=== PATIENT | male | born 1965 | race Caucasian/White ===

== ENCOUNTER 2016-08-13 18:54 | Inpatient (IN) ==
[2016-08-13] MEDS ORDERED: SODIUM CHLORIDE 0.9% 2,000 ML IV STA (19:43)
[2016-08-13] MEDS ORDERED: ONDANSETRON 4 MG/2 ML VIAL IV STA (19:43)
[2016-08-13] MEDS ORDERED: ONDANSETRON 4 MG/2 ML VIAL ONE (19:54)
[2016-08-13 19:58] LABS: Basophils # 0.1 10*3/uL (0.0-0.2); Basophils % 0.5 % (0.0-0.8); Hematocrit 45.7 VOL% (42.0-52.0); Hemoglobin 16.1 GM/DL (14.0-18.0); Immature Granulocytes Absolute 0.59 #; Lymphocytes # 0.7 10*3/uL (1.4-4.0); Lymphocytes % 3.7 % (21.2-54.2); Mean Corpuscular HGB Conc 35.2 GM/DL (32-36); Mean Corpuscular Hemoglobin 30 PG (27-34); Mean Corpuscular Volume 86.2 FL (87-102); Mean Platelet Volume 11.2 FL (9.6-12.0); Monocytes # 0.4 10*3/uL (0.11-0.8); Monocytes % 2.1 % (1.7-12.7); Neutrophils # 18.1 10*3/uL (1.4-7.4); Neutrophils % 90.7 % (38.7-73.9); Platelet Count 128 T/CUMM (130-400); Red Cell Distribution Width 13.1 % (9.3-17.3)
--- NOTE | 2016-08-13 20:11 | EKG Report ---
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
[2016-08-13] MEDS ORDERED: CEFTAROLINE 600 MG in SODIUM CHLORIDE 0.9% 100 ML IV STA (20:14)
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
[2016-08-13 20:17] LABS: Lactic Acid 6.4 MMOL/L (0.4-2.0)
[2016-08-13 20:18] LABS: Alanine Aminotransferase 32 U/L (16-61); Albumin 2.8 G/DL (3.4-5.0); Alkaline Phosphatase 63 U/L (45-117); Amylase 35 U/L (25-115); Aspartate Amino Transferase 36 U/L (0-37); Band Neutrophils 13 % (0-10); Blood Urea Nitrogen 36 MG/DL (7-18); Glucose 324 MG/DL (74-106); Lymphocytes 5 % (20-55); Magnesium 1.3 MG/DL (1.8-2.4); Osmolality,Calculated 290.1 MOS/KG (273-304); Potassium 3.1 MMOL/L (3.5-5.1); Segmented Neutrophils 78 % (50-85); Sodium 135 MMOL/L (136-145); Total Cells Counted 100; Total Protein 6.8 G/DL (6.4-8.3); Troponin I Only < 0.015 NG/ML (0.00-0.045)
[2016-08-13 20:19] LABS: Platelet Estimate Decreased; Poikilocytosis Slight; Tear Drop Cells Slight
[2016-08-13] MEDS ORDERED: SODIUM CHLORIDE 0.9% 100 ML IV ONE (20:41)
[2016-08-13] MEDS ORDERED: CEFTAROLINE 600 MG VIAL IV ONE (20:41)
[2016-08-13] MEDS ORDERED: KETOROLAC 30 MG/1 ML VIAL IV STA (20:45)
[2016-08-13] MEDS ORDERED: KETOROLAC 30 MG/1 ML VIAL ONE (20:52)
[2016-08-13] MEDS ORDERED: GENTAMICIN INJ 180 MG in SODIUM CHLORIDE 0.9% 100 ML IV STA (20:59)
--- NOTE | 2016-08-13 21:28 | CT Report ---
CT abdomen pelvis wo con Indication: Abdominal pain/pelvic pain Comparison: November 13, 2015 CT abdomen and pelvis Technique: CT of the abdomen and pelvis was performed without administration of intravenous contrast. Coronal and sagittal reformatted images were additionally created and submitted for review. The total DLP is 1019 mGy*cm. Dose reduction: This CT exam was performed using one or more of the following dose reduction techniques: Automated exposure control, automated adjustment of the mA and/or KV according to patient size, or use of iterative reconstruction technique. Findings: Very minimal posterior basilar dependent atelectatic changes are noted bilaterally. Lung bases are otherwise clear. There is no pleural or pericardial effusion. ABDOMEN: Liver/Gallbladder: Unenhanced liver appears grossly unremarkable. There is mild diffuse hypodensity which is suspicious for fatty infiltration of the hepatic parenchyma. Gallbladder is nondilated. There is no biliary ductal dilatation. Spleen: No acute findings. Pancreas: No acute findings. Adrenals: Within normal limits in appearance. Kidneys: There is marked stranding about the right kidney with a 0.9 cm obstructing stone within the proximal right ureter. The amount of stranding about the right kidney is concerning for collecting system disruption/urine leak. Contrast examination with delayed imaging could be obtained to assess this. There is an additional 4 mm stone within the distal right ureter, which is also likely partially obstructing. Additional 2-3 millimeter nonobstructing stones are noted within the right renal collecting system. No bladder stones are identified. There is a 9 mm nonobstructing stone within the lower pole of the left kidney. Bowel/mesentery: Small bowel is nondilated. There is no free air within the abdomen. No focal fluid collections are identified. Colon is also nondilated. The appendix appears unremarkable. There is no mesenteric adenopathy Retroperitoneum: No evidence of aortic aneurysm or significant retroperitoneal adenopathy. PELVIS: Bladder is unremarkable. Prostate is within normal limits. There is no free fluid within the dependent pelvis. There is no pelvic adenopathy. Again noted is the partially obstructing 4 mm stone within the distal right ureter (axial image 161). BONES: No acute or suspicious osseous abnormalities are identified. Partially healed left 10th rib fracture is noted and appears similar to prior. IMPRESSION: 1. 2 separate obstructing right ureteral stones, the distal one measures 4 mm and the proximal measures 9 mm. There is mild right hydronephrosis/hydroureter and marked stranding about the right kidney, concerning for disruption of the collecting system/urine leak. This could be evaluated with contrasted study and delayed imaging if clinically indicated. 2. Additional bilateral nonobstructing renal stones are noted. 3. Findings suggestive of fatty infiltration of the hepatic parenchyma. 08/13/2016 9:17 PM PROCEDURE INTERPRETED AT [facility] DEPARTMENT OF RADIOLOGY Final Report Signed by: Fernandez Mercedes
--- NOTE | 2016-08-13 21:38 | XRay Report ---
XR KUB Clinical Information: Midline abdominal pain, flank pain Comparison: 09/01/2009 Findings: Bowel gas pattern is nonspecific and within normal limits. No abnormally dilated small bowel loops are identified to suggest obstruction. There is no free air identified. Scattered fecal material is noted throughout colon, which is otherwise nondilated. No abnormal focal soft tissue masses are identified in the abdomen or pelvis. Multiple bilateral punctate calcific densities are noted within the renal shadows, likely representing stones. There is also a punctate calcific density within the right hemipelvis likely representing the distal ureteral stone seen on CT imaging. Lung bases appear predominantly clear. There is no acute osseous abnormality. No suspicious osseous lesions are identified. Impression: No evidence of small bowel dilatation/obstruction. Multiple bilateral renal stones. Please see CT abdomen pelvis report dated same day for additional findings/details. PROCEDURE INTERPRETED AT [facility] DEPARTMENT OF RADIOLOGY Final Report Signed by: Fernandez Mercedes
[2016-08-13] MEDS ORDERED: VANCOMYCIN INJ 1,000 MG in SODIUM CHLORIDE 0.9% 250 ML IV STA (22:02)
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
[2016-08-13] MEDS ORDERED: SODIUM CHLORIDE 0.9% 1,000 ML IV STA (22:35)
[2016-08-13] MEDS ORDERED: NOREPINEPHRINE 4 MG/4 ML VIAL IV ONE (22:39)
[2016-08-13] MEDS ORDERED: VANCOMYCIN 1,000 MG VIAL ONE ×2 (22:43→22:55)
[2016-08-13] MEDS: NOREPINEPHRINE 8 MG in SODIUM CHLORIDE 0.9% 242 ML IV SCH (23:00)
--- NOTE | 2016-08-13 23:02 | XRay Report ---
Exam: XR chest 1V portable Indication: Central venous catheter placement Comparison study: 03/02/2016 Findings: Right internal jugular venous catheter noted in position with the tip terminating at cavoatrial junction. The lung volumes are noted with perihilar and basilar interstitial opacities likely representing atelectasis. There is no focal consolidation. There is no pneumothorax or pleural effusion identified. Impression: Right internal jugular venous catheter placement. Basilar atelectasis is suspected. PROCEDURE INTERPRETED AT [facility] DEPARTMENT OF RADIOLOGY Final Report Signed by: Fernandez Mercedes
[2016-08-13 23:40] LABS: Apearance,Urine CLOUDY (Clear); Bacteria,Urine Many /HPF (Few); Bilirubin,Urine Negative (Negative); Blood, Urine Moderate mg/dL (Negative); Glucose,Urine (UA) >=500 mg/dL (Negative); Ketones,Urine 5 mg/dL (Negative); Mucus,Urine Occasional /LPF (Occasional); Nitrite,Urine Negative (Negative); Protein,Urine 100 MG/DL; RBC,Urine 32 /HPF (0-4); Squamous Epithelial Cell,Urine Occasional /HPF (0-10); Urine Color Amber (Yellow); Urine Specific Gravity 1.014 (1.001-1.035); Urine Urobilinogen < 2.0 EU/DL (0.2-1.0); WBC,Urine 277 /HPF (0-6)
[2016-08-14] MEDS ORDERED: VANCOMYCIN INJ 1,000 MG in SODIUM CHLORIDE 0.9% 250 ML IV ONE (01:00)
[2016-08-14] MEDS: PIPERACILLIN/TAZOBACTAM 3,375 MG in SODIUM CHLORIDE 0.9% 100 ML IV SCH ×3 (01:46→22:36)
[2016-08-14] MEDS: HYDROmorphone 2 MG/1 ML VIAL IV PRN ×2 (05:48→21:10)
--- NOTE | 2016-08-14 07:33 | Urology Consultation ---
History of Present Illness - Data of Consult Consult date: 08/14/16 - Consult Narrative History of present illness: Mr. Silva is a 50 year old male This 50-year-old white male was seen in emergency room the day of admission with 2-3 day history of right flank pain. He has a past history of stones and is passed multiple stones previously. In the emergency room he was noted to have pyuria on urinalysis and an elevated white count and a CT scan shows a 9 mm proximal right ureteral stone and a 4 mm distal right ureteral strong stone with mild hydronephrosis. He has additional renal stones. The patient was also noted to be hypotensive and was admitted to ICU for antibiotic therapy and blood pressure monitoring. The patient will need decompression of the collecting system on the right side until the infection is controlled I will recommend a percutaneous nephrostomy. I discussed the case with Dr. Griffin who will do this today CC: Jose Vera MD - Home Medications and Allergies Allergies/Adverse Reactions: Allergies Allergy/AdvReac Type Severity Reaction Status Date / Time No Known Allergies Allergy Verified 03/02/16 03:18 Exam - Constitutional Vitals: Period Temp Pulse Resp BP Sys/Gill Pulse Ox Last 24 Hr 100.3 F-100.6 F 111-120 16-27 92-125/47-74 93-96 Results - Labs CBC & BMP: 08/13/16 19:36 08/13/16 19:36
--- NOTE | 2016-08-14 08:15 | IR History and Physical Update ---
IR Pre-Procedure - History and Physical H&P was reviewed, the patient examined and there: are no changes in the patients condition since last H&P was completed. Reason for procedure:: 50-year-old male with history of kidney stones. The dominant right kidney stone has now migrated into the proximal right ureter with obstruction of the right urinary collecting system. Patient presented to the ER yesterday afternoon septic, hypotensive with decreased responsiveness. He is now in the ICU and in need of emergent percutaneous nephrostomy. - Dictation Physical: refer to H&P completed by admitting physician - Physical Exam Vital Signs: Last Vital Signs Temp 100.3 F H 08/14/16 04:00 Pulse 111 H 08/14/16 06:00 Resp 16 08/14/16 06:00 BP 95/47 08/14/16 06:45 Pulse Ox 94 L 08/14/16 06:00 - Sedation IR anesthesia plan for sedation: anesthesia consulted ASA Class: IV (Emergency) - Risks Risks: Procedures explained. Risks discussed include, but not limited to, the following:[Worsening sepsis, intubation, ] All questions answered. The following alternatives were discussed:[None] Risks and benefits discussed with: spouse Consent obtained from: spouse Assessment and Plan - Time spent with patient Time spent with patient: Less than 30 minutes (1) Pyonephrosis Status: Acute Assessment and plan: Assessment: Obstructing proximal right ureter calculus with resultant pyelonephrosis of the right kidney. Emergent percutaneous nephrostomy necessary. Plan: Emergent right percutaneous nephrostomy. Risks including discussed with patient's on telephone, witnessed by RN. Anesthesia consulted for CV monitoring and airway management. Current Visit: Yes
[2016-08-14] MEDS ORDERED: PHENYLEPHRINE 1 MG/10 ML SYRINGE IV ONE (08:30)
[2016-08-14] MEDS ORDERED: DEXAMETHASONE 4 MG/1 ML VIAL ONE (08:30)
[2016-08-14] MEDS ORDERED: DEXAMETHASONE 10 MG/1 ML VIAL ONE (08:30)
[2016-08-14] MEDS ORDERED: NEOSTIGMINE 10 MG/10 ML VIAL ONE (08:30)
[2016-08-14] MEDS ORDERED: GLYCOPYRROLATE 0.4 MG/2 ML VIAL ONE (08:30)
[2016-08-14] MEDS ORDERED: LIDOCAINE 2% 5 ML VIAL ONE (08:30)
[2016-08-14] MEDS ORDERED: SUCCINYLCHOLINE 200 MG/10 ML VIAL ONE (08:30)
[2016-08-14] MEDS ORDERED: ETOMIDATE 20 MG/10 ML VIAL IV ONE (08:30)
[2016-08-14] MEDS ORDERED: KETOROLAC 30 MG/1 ML VIAL ONE (08:30)
[2016-08-14] MEDS ORDERED: ONDANSETRON 4 MG/2 ML VIAL ONE ×2 (08:30→15:02)
[2016-08-14] MEDS ORDERED: PROPOFOL 500 MG/50 ML BOTTLE IV ONE (08:30)
[2016-08-14] MEDS ORDERED: CISATRACURIUM 10 MG/5 ML VIAL IV ONE (08:30)
--- NOTE | 2016-08-14 09:19 | Post Interventional Procedure ---
Pre-op diagnosis: Right pyonephrosis, urosepsis Post-op diagnosis: same Procedure: Right percutaneous nephrostomy Contrast: Omni 350, 2 cc Flouroscopy: 1.1 min Radiologist: Lincoln Griffin Anesthesia: GETA Specimens: other (5 cc pus for Cx and GS) Estimated blood loss: none Complications: none Condition: critical Description/Findings: Uncomplicated placement of 10 Fr pigtail drain catheter right kidney. Ross pus under pressure when initially accessed. Assessment and Plan - Time spent with patient Time spent with patient: Less than 30 minutes (1) Pyonephrosis Status: Acute Assessment and plan: Assessment: Obstructing proximal right ureter calculus with resultant pyelonephrosis of the right kidney. Emergent percutaneous nephrostomy necessary. Plan: Emergent right percutaneous nephrostomy. Risks including discussed with patient's on telephone, witnessed by RN. Anesthesia consulted for CV monitoring and airway management. 09:18 @ 08/14/16: [place] bag drainage of right perc neph. No flushing catheter until urine clears to minimize risk of bacteremia. Current Visit: Yes
[2016-08-14] MEDS ORDERED: SUGAMMADEX 200 MG/2 ML VIAL IV ONE ×3 (09:30→09:40)
--- NOTE | 2016-08-14 10:05 | Anesthesia Post-Op ---
Anesthesia Post OP - Post Ansesthetic Evaluation Patient seen in post op: Yes Resp: within normal limits CV: within normal limits Mental: within normal limits Temp: within normal limits [id number]: within normal limits Nausea and Vomiting: within normal limits Pain: within normal limits
[2016-08-14] MEDS ORDERED: SEVOFLURANE 1 UNIT/15 MINUTE INH ONE (10:07)
[2016-08-14] MEDS ORDERED: MIDAZOLAM 2 MG/2 ML VIAL ONE (10:08)
[2016-08-14] MEDS ORDERED: fentaNYL 100 MCG/2 ML VIAL ONE (10:08)
[2016-08-14] MEDS ORDERED: SODIUM CHLORIDE 0.9% 750 ML IV ONE (10:08)
[2016-08-14] MEDS ORDERED: DEXTROSE 50% 25 GM/50 ML VIAL IV PRN (10:47)
[2016-08-14] MEDS ORDERED: GLUCAGON 1 MG VIAL IM PRN (10:47)
[2016-08-14] MEDS ORDERED: LEVOFLOXACIN INJ 750 MG in PREMIX 1 EACH IV ONE (11:00)
--- NOTE | 2016-08-14 11:02 | Interventional Radiology Rpt ---
IR nephrostomy perc RT, Consult to Interventional Rad Indication: Pyonephrosis right kidney. Urosepsis. Hypertension, on pressors. Obstructing proximal right ureter calculus. History of kidney stones. PERCUTANEOUS NEPHROSTOMY RIGHT KIDNEY Description: A formal timeout was performed. General endotracheal anesthesia was induced. The patient was positioned prone on the fluoroscopy table. Maximum sterile barrier technique was used. The right back was prepped and draped in a sterile fashion. Under sonographic guidance, an AccuStick needle was advanced into the minimally dilated urinary collecting system. A captured sonographic image documents the needle position. The needle was slowly withdrawn while aspirating. Latoya pus returned in the hub, a very gentle antegrade nephroureterogram of 2 cc contrast was performed to confirm positioning of the tip of the needle. The needle was exchanged over a wire for an AccuStick sheath, which was then exchanged for a 10 Brazilian pigtail drainage catheter. Pus exuded from the catheter under pressure at this point. And aspirate of 5 cc latoya pus was obtained and sent for Gram stain and culture. Pigtail position was confirmed in the renal pelvis with residual contrast from the earlier nephrostogram and no additional injection was performed to limit risk of propagating bacteremia. The catheter was anchored in place with a StatLock device and connected to a drainage bag. The patient tolerated the procedure well. Contrast: Omnipaque 350, 2 cc. Fluoroscopy time: 1.1 minute. Medications: General endotracheal anesthesia. Impression: Right percutaneous nephrostomy. PROCEDURE INTERPRETED AT [facility] DEPARTMENT OF RADIOLOGY Final Report Signed by: Lincoln Griffin M.D.
[2016-08-14] MEDS: SODIUM CHLORIDE 0.9% 1,000 ML IV SCH ×2 (11:15→18:52)
[2016-08-14] MEDS ORDERED: MAGNESIUM SULF RIDER 2 GM in PREMIX 1 EACH IV ONE (11:16)
--- NOTE | 2016-08-14 11:20 | Hospitalist Progress Note ---
Assessment and Plan (1) Pyonephrosis Status: Acute Assessment and plan: The patient is moved the hospital with sepsis syndrome. He is receiving IV fluid resuscitation and IV antibiotics with Zosyn and Levaquin at renal failure doses. The patient has acute renal failure due to obstruction as well as sepsis. The patient has had nephrostomy tube placed. Dr. Carr is managing the ureteral stone disease. The patient will have repletion of magnesium and potassium. We will recheck creatinine in the morning. Current Visit: Yes (2) Right ureteral calculus Status: Acute Current Visit: Yes (3) Severe sepsis Status: Acute Current Visit: Yes Hospitalist: Subjective Interval history: The patient was admitted to the hospital yesterday evening with obstructing stones on the right with hydronephrosis and gram-negative sepsis. The patient continues on fluid resuscitation and IV antibiotics. The patient had a consultation with Dr. Carr this morning and Dr. Griffin was able to place percutaneous nephrostomy tube. I discussed the patient's condition with his at the bedside. The patient's hemodynamics are stable at present and he is responding appropriately to therapy. Exam - Constitutional Vitals: Period Temp Pulse Resp BP Sys/Gill Pulse Ox Last 24 Hr 97.4 F-100.6 F 111-136 16-28 92-125/47-91 93-97 Exam: Constitutional System: Mild distress. No tremulousness. The patient is sedated following the nephrostomy. The patient has mild diaphoresis Head: Normocephalic, atraumatic. Ears, Nose and Throat System: No evidence of Otitis or Mastoiditis. No epistaxis or discharge Eyes System: Pupils equal, round, and reactive. Extraocular muscles intact. Neck: Supple, without adenopathy, No jugular venous distention. No thyromegaly , neck mass, or prior surgery apparent. Respiratory System: Chest clear to auscultation. Cardiovascular System: Heart with regular rate and rhythm. No murmur. GI System: Abdomen soft, nontender. Hypo-active bowel sounds present. Musculoskeletal System: limbs with no pedal edema. Full distal pulses. Neurological System: No discernable sensory deficit. Results - Labs CBC & BMP: 08/13/16 19:36 08/13/16 19:36 Lab Results: I have reviewed the past 24 hour labs
[2016-08-14] MEDS: POTASSIUM CHLORIDE RIDER 10 MEQ in PREMIX 1 EACH IV SCH ×3 (12:20→14:21)
[2016-08-14] MEDS ORDERED: INSULIN LISPRO 100 UNIT/ML SUBCUT SCH ×2 (12:43→14:00)
[2016-08-14] MEDS: INSULIN LISPRO 100 UNIT/ML SUBCUT SCH ×4 (13:03→23:59)
[2016-08-14] MEDS: ONDANSETRON 4 MG/2 ML VIAL IV PRN ×2 (15:05→21:15)
[2016-08-14] MEDS: ALUMINUM/MAGNES/SIMETH MAX STR 30 ML UDCUP PO PRN (17:29)
[2016-08-14] MEDS ORDERED: GENTAMICIN INJ 180 MG in SODIUM CHLORIDE 0.9% 100 ML IV SCH (21:00)
[2016-08-14] MEDS: INSULIN NPH 100 UNIT/ML SUBCUT SCH (21:10)
[2016-08-14] MEDS: NOREPINEPHRINE 8 MG in SODIUM CHLORIDE 0.9% 242 ML IV SCH (22:36)
[2016-08-15] MEDS: SODIUM CHLORIDE 0.9% 1,000 ML IV SCH (03:27)
[2016-08-15] MEDS: INSULIN LISPRO 100 UNIT/ML SUBCUT SCH ×5 (04:17→21:03)
[2016-08-15 04:21] LABS: Basophils % 0.3 % (0.0-0.8); Hematocrit 36.6 VOL% (42.0-52.0); Hemoglobin 12.9 GM/DL (14.0-18.0); Immature Granulocytes % 0.2 %; Immature Granulocytes Absolute 0.03 #; Lymphocytes # 0.7 10*3/uL (1.4-4.0); Lymphocytes % 5.4 % (21.2-54.2); Mean Corpuscular HGB Conc 35.2 GM/DL (32-36); Mean Corpuscular Hemoglobin 31 PG (27-34); Mean Corpuscular Volume 86.5 FL (87-102); Mean Platelet Volume 11.6 FL (9.6-12.0); Monocytes # 0.6 10*3/uL (0.11-0.8); Monocytes % 4.4 % (1.7-12.7); Neutrophils # 11.2 10*3/uL (1.4-7.4); Neutrophils % 89.7 % (38.7-73.9); Red Blood Count 4.23 MC/CUMM (3.8-5.5); Red Cell Distribution Width 13.6 % (9.3-17.3); White Blood Count 12.5 T/CUMM (4-12)
[2016-08-15 04:28] LABS: Platelet Count 82 T/CUMM (130-400)
[2016-08-15 04:48] LABS: Calcium 6.6 MG/DL (8.5-10.1); Osmolality,Calculated 300.8 MOS/KG (273-304); Potassium 2.8 MMOL/L (3.5-5.1)
[2016-08-15] MEDS ORDERED: POTASSIUM CHLORIDE RIDER 20 MEQ in PREMIX 1 EACH IV PRN (05:05)
[2016-08-15] MEDS ORDERED: POTASSIUM CHLORIDE RIDER 10 MEQ in PREMIX 1 EACH IV PRN (05:18)
[2016-08-15 05:30] LABS: Band Neutrophils 3 % (0-10); Lymphocytes 8 % (20-55); Metamyelocytes 1 %; Segmented Neutrophils 83 % (50-85); Total Cells Counted 100
[2016-08-15 05:32] LABS: Burr Cells 1+; Platelet Estimate Decreased
[2016-08-15] MEDS: POTASSIUM CHLORIDE RIDER 20 MEQ in PREMIX 1 EACH IV PRN ×2 (05:39→07:00)
[2016-08-15 06:06] LABS: Albumin 1.8 G/DL (3.4-5.0); Bilirubin,Total 0.5 MG/DL (0.2-1.0); Calcium 6.4 MG/DL (8.5-10.1); Osmolality,Calculated 302.5 MOS/KG (273-304); Potassium 2.6 MMOL/L (3.5-5.1); Total Protein 5.2 G/DL (6.4-8.3)
[2016-08-15] MEDS: HYDROmorphone 2 MG/1 ML VIAL IV PRN ×2 (07:05→21:06)
[2016-08-15] MEDS: ONDANSETRON 4 MG/2 ML VIAL IV PRN ×4 (07:05→21:05)
--- NOTE | 2016-08-15 07:41 | Urology Progress Note ---
Urology - PN: Subj Interval history: The patient's white count is decreased. His creatinine is increased from 5-6 and his output from the nephrostomy tube is low. Hopefully this will increase if his renal function improves. The patient's blood cultures are positive with gram-negative rods. The final report and sensitivity is pending Exam - Constitutional Vitals: Period Temp Pulse Resp BP Sys/Gill Pulse Ox Last 24 Hr 97.4 F-98.1 F 81-136 14-28 91-132/64-91 91-97 Results - Labs CBC & BMP: 08/15/16 03:45 08/15/16 05:20
[2016-08-15] MEDS: POTASSIUM CHLORIDE 20 MEQ TABLET PO SCH ×3 (08:09→15:25)
--- NOTE | 2016-08-15 08:44 | Progress Note ---
Assessment and Plan - Time spent with patient Time spent with patient: Less than 30 minutes (1) Pyonephrosis Status: Acute Assessment and plan: Assessment: Obstructing proximal right ureter calculus with resultant pyelonephrosis of the right kidney. Emergent percutaneous nephrostomy necessary. Plan: Emergent right percutaneous nephrostomy. Risks including discussed with patient's on telephone, witnessed by RN. Anesthesia consulted for CV monitoring and airway management. 09:18 @ 08/14/16: [place] bag drainage of right perc neph. No flushing catheter until urine clears to minimize risk of bacteremia. 08:43 @ 08/15/16: Continue gravity bag drainage right percutaneous nephrostomy. Call with questions. Current Visit: Yes Family Medicine PN Sub Interval history: Off pressors. Heart rate now normal. Minimal urine output from percutaneous nephrostomy, although the urine present is only minimally blood-tinged. Somewhat sedated from recent pain medication. Exam (Progress Note) - Constitutional Vitals: Period Temp Pulse Resp BP Sys/Gill Pulse Ox Last 24 Hr 97.4 F-98.1 F 81-136 14-28 91-132/64-91 91-97 Results - Labs CBC & BMP: 08/15/16 03:45 08/15/16 05:20
--- NOTE | 2016-08-15 08:56 | Hospitalist Progress Note ---
Assessment and Plan (1) Pyonephrosis Status: Acute Assessment and plan: The patient is moved the hospital with sepsis syndrome. He has received IV fluid resuscitation and continues to receive IV antibiotics with Zosyn and Levaquin at renal failure doses. The patient has acute renal failure due to obstruction as well as sepsis. The patient has had nephrostomy tube placed. Dr. Carr is managing the ureteral stone disease. The patient will continue repletion of potassium, though carefully due to renal failure. We will recheck creatinine in the morning. I have requested nephrology consultation with Dr. Dill. The patient is hemodynamically stable and ready for transfer to monitored bed. Current Visit: Yes (2) Right ureteral calculus Status: Acute Current Visit: Yes (3) Severe sepsis Status: Acute Current Visit: Yes Hospitalist: Subjective Interval history: The patient has been hemodynamically stable overnight. Blood cultures obtained at the time of admission on 13 August reveal gram-negative rhona. Further identification is still pending. The patient no longer requires vasopressor to maintain blood pressure. The patient has right flank pain and has received some Dilaudid this morning and has mild sedation. The patient is less diaphoretic than he was yesterday. The patient had nephrostomy percutaneous drain placed yesterday by Dr. Griffin. The patient presented to the hospital with urinary tract infection and sepsis. He has an obstructing stone on the right-hand side. Percutaneous drain has been placed in the right kidney. Dr. Carr is managing his urology issues. The patient's baseline creatinine was 1.6 and fall 2015 when last measured. I was expecting that creatinine was elevated yesterday due to sepsis and hypotension and that the patient's creatinine will begin to improve today. The patient's creatinine is 6.2 so I will request nephrology consultation. Exam - Constitutional Vitals: Period Temp Pulse Resp BP Sys/Gill Pulse Ox Last 24 Hr 97.4 F-98.1 F 81-136 14-28 91-132/64-91 91-97 Exam: Constitutional System: Mild distress. No tremulousness. The patient is sedated following Dilaudid for pain. The patient has mild diaphoresis Head: Normocephalic, atraumatic. Ears, Nose and Throat System: No evidence of Otitis or Mastoiditis. No epistaxis or discharge Eyes System: Pupils equal, round, and reactive. Extraocular muscles intact. Neck: Supple, without adenopathy, No jugular venous distention. No thyromegaly , neck mass, or prior surgery apparent. Respiratory System: Chest clear to auscultation. Cardiovascular System: Heart with regular rate and rhythm. No murmur. GI System: Abdomen soft, nontender. Hypo-active bowel sounds present. Musculoskeletal System: limbs with no pedal edema. Full distal pulses. Neurological System: No discernable sensory deficit. Results - Labs CBC & BMP: 08/15/16 03:45 08/15/16 05:20 Lab Results: I have reviewed the past 24 hour labs
[2016-08-15] MEDS ORDERED: LEVOFLOXACIN INJ 250 MG in PREMIX 1 EACH IV SCH (09:00)
[2016-08-15] MEDS: ALUMINUM/MAGNES/SIMETH MAX STR 30 ML UDCUP PO PRN (10:15)
[2016-08-15] MEDS: POTASSIUM CHLORIDE INJ 40 MEQ in LACTATED RINGERS 1,000 ML IV SCH ×2 (10:20→17:17)
[2016-08-15 11:42] LABS: Creatinine,Urine Random 90 MG/DL; Total Protein,Urine Random 234 MG/DL; Urea Nitrogen, Urine Random 250 MG/DL
[2016-08-15] MEDS: PIPERACILLIN/TAZOBACTAM 3,375 MG in SODIUM CHLORIDE 0.9% 100 ML IV SCH ×2 (11:42→23:01)
--- NOTE | 2016-08-15 14:32 | Nephrology Consult Note ---
History of Present Illness Chief complaint: Referred for elevated creatinine History of present illness: Mr. Silva is a 50 year old male admitted with gram negative urosepsis, ID and sensitivities pending. Unfortunately got aminoglycosides in ED. Multiple bilat stones, metabolic acidosis, hypokalemia suspicious for distal RTA (type I). Obstructing stones x 2 on right, s/p percutaneous nephrostomy placement with little outpt since placement. Creatinine unchanged at 6.2. Pt had been on pressor support to maintain MAPs. His fractional excretion of urea of 28% is consistent with prerenal azotemia. Creatinine ranged from 1-1.5 over the last year. Home Medications Medication Instructions Recorded Confirmed Type Metoprolol Tartrate 50 mg PO BID 08/14/16 08/14/16 History Pantoprazole Tab [Protonix Tab] 40 mg PO DAILY 08/14/16 08/14/16 History metFORMIN [Glucophage] 1,000 mg PO BID W/MEALS 08/14/16 08/14/16 History Allergies Allergy/AdvReac Type Severity Reaction Status Date / Time No Known Allergies Allergy Verified 03/02/16 03:18 Medical,Surgical,& Family Hx - Medical History Cardio: History of: Hypertension Genitourinary: History of: Kidney Stones (multiple, but did not require surgery) - Surgical History Neurologic Surgeries: Patient denies: Neurologic Surgery HEENT Surgeries: Surgical HX of: Tonsilectomy & Adenoidectomy - Social History Smoking Status: Former smoker Frequency of Alcohol Use: None Type of Drug Use: None Review of Systems ROS unobtainable: due to mental status Exam - Vital Signs Vital signs: Period Temp Pulse Resp BP Sys/Gill Pulse Ox Last 24 Hr 96.8 F-98.1 F 75-103 12-25 91-126/64-90 92-95 - General Appearance General appearance: well-developed, obese, chronically ill EENT: ATNC, PERRL, mucous membranes dry, hearing intact, vision intact Neck: no JVD, no thyromegaly Respiratory: no kyphosis, clear Cardiology: no murmurs, no rub, no edema Gastrointestinal: normoactive bowel sounds, no tenderness Integumentary: no rash, warm and dry Neurologic: no focal deficit, no asterixis Musculoskeletal: no deformities, no erythema Psychiatric: mood/affect appropriate, cooperative Results - Labs CBC & BMP: 08/15/16 03:45 08/15/16 05:20 Assessment and Plan (1) Prerenal azotemia Status: Acute Current Visit: Yes (2) Obstructive uropathy Status: Acute Current Visit: Yes (3) Distal renal tubular acidosis Problem details: Treat acidosis with potassium citrate tid. LR IVFs Status: Acute Current Visit: Yes (4) GM (acute kidney injury) Problem details: no acute indication for renal replacement therapy at this time. Status: Acute Current Visit: Yes (5) Septic shock Status: Acute Current Visit: Yes
[2016-08-15] MEDS: POTASSIUM CITRATE 10 MEQ TABLET PO SCH ×2 (15:25→21:04)
[2016-08-15 16:22] LABS: Apearance,Urine CLOUDY (Clear); Bilirubin,Urine Negative (Negative); Blood, Urine Large mg/dL (Negative); Glucose,Urine (UA) 50 mg/dL (Negative); Ketones,Urine Negative (Negative); Nitrite,Urine Negative (Negative); Protein,Urine 100 MG/DL; RBC,Urine 302 /HPF (0-4); Urine Color Yellow (Yellow); Urine Specific Gravity 1.011 (1.001-1.035); Urine Urobilinogen < 2.0 EU/DL (0.2-1.0); WBC,Urine 224 /HPF (0-6)
[2016-08-15] MEDS: INSULIN NPH 100 UNIT/ML SUBCUT SCH (22:04)
[2016-08-16] MEDS: INSULIN LISPRO 100 UNIT/ML SUBCUT SCH ×6 (00:13→20:46)
[2016-08-16] MEDS: POTASSIUM CHLORIDE INJ 40 MEQ in LACTATED RINGERS 1,000 ML IV SCH (02:09)
[2016-08-16 04:44] LABS: Basophils % 0.3 % (0.0-0.8); Hematocrit 38.7 VOL% (42.0-52.0); Hemoglobin 13.3 GM/DL (14.0-18.0); Immature Granulocytes Absolute 0.15 #; Lymphocytes # 0.9 10*3/uL (1.4-4.0); Lymphocytes % 5.5 % (21.2-54.2); Mean Corpuscular HGB Conc 34.4 GM/DL (32-36); Mean Corpuscular Hemoglobin 30 PG (27-34); Mean Corpuscular Volume 86.4 FL (87-102); Monocytes # 0.7 10*3/uL (0.11-0.8); Monocytes % 4.6 % (1.7-12.7); Neutrophils # 13.7 10*3/uL (1.4-7.4); Neutrophils % 88.6 % (38.7-73.9); Platelet Count 91 T/CUMM (130-400); Red Blood Count 4.48 MC/CUMM (3.8-5.5); Red Cell Distribution Width 13.8 % (9.3-17.3); White Blood Count 15.4 T/CUMM (4-12)
[2016-08-16 05:15] LABS: Calcium 7.3 MG/DL (8.5-10.1); Magnesium 2.3 MG/DL (1.8-2.4); Osmolality,Calculated 306.5 MOS/KG (273-304)
[2016-08-16 05:51] LABS: Acanthocytes Few; Band Neutrophils 3 % (0-10); Lymphocytes 4 % (20-55); Metamyelocytes 1 %; Platelet Estimate Decreased; Segmented Neutrophils 88 % (50-85); Total Cells Counted 100
--- NOTE | 2016-08-16 07:52 | Urology Progress Note ---
Urology - PN: Subj Interval history: Patient still has an elevated white count but no fever. Little output from the nephrostomy and this remains bloody. Creatinine remains elevated Exam - Constitutional Vitals: Period Temp Pulse Resp BP Sys/Gill Pulse Ox Last 24 Hr 96.6 F-97.6 F 75-81 12-20 98-128/72-90 93-97 Results - Labs CBC & BMP: 08/16/16 04:16 08/16/16 04:16
[2016-08-16] MEDS: POTASSIUM CITRATE 10 MEQ TABLET PO SCH ×3 (09:14→20:46)
--- NOTE | 2016-08-16 10:34 | Hospitalist Progress Note ---
Assessment and Plan - Time spent with patient Time spent with patient: Less than 30 minutes (1) Right ureteral calculus Status: Acute Assessment and plan: Mr. Silva is a 50-year-old white male with history of hypertension and kidney stones presenting to the ED on 08/13/16 with obstructing stones on the right with hydronephrosis and gram-negative urosepsis. Patient required pressors initially. He is undergoing fluid resuscitation and IV antibiotics. Dr. Griffin emergently placed nephrostomy tube and Dr. Carr is managing the uretal stone disease. Dr. Dill is now following for patient's rising creatinine. 08/16/16--patient is afebrile and vital signs are stable. He is off pressors. He is on Levaquin and Zosyn renally dosed for his urosepsis of gram-negative rods. His sensitivities are pending for both urine and blood and hope to be out today. Patient's had 20mls of drainage from the right nephrostomy tube in the last 24 hours. This drainage is blood-tinged. There is no urine output recorded for today. He had 610 recorded for yesterday's 24 hours. His white blood cell count is down to 15.4 but his creatinine is risen to 6.8. His blood sugars are running high in the 200s. Not really much to change for today as far as hospitalists are concerned. Dr. Minor will see and examine patient. Further recommendations to follow. Current Visit: Yes (2) Renal failure Status: Acute Current Visit: Yes (3) Septic shock Status: Acute Current Visit: Yes (4) Ureteral obstruction Status: Acute Current Visit: Yes Hospitalist: Subjective Interval history: Patient is sleepy but arousable with slurred speech. He just received some pain medicine for his flank pain. He states he does not feel well at all. He is drinking some liquids but not eating much. Exam - Constitutional Vitals: Period Temp Pulse Resp BP Sys/Gill Pulse Ox Last 24 Hr 96.6 F-97.8 F 70-81 14-20 106-128/78-90 93-97 Exam: 50-year-old white male, sleepy but arousable, oriented Chest clear CV regular rate and rhythm Abdomen mildly distended and tender throughout, nephrostomy tube in place with bloody tinged drainage Extremities with 1+ edema bilaterally Results - Labs CBC & BMP: 08/16/16 04:16 08/16/16 04:16 Lab Results: I have reviewed the past 24 hour labs
[2016-08-16] MEDS: PIPERACILLIN/TAZOBACTAM 3,375 MG in SODIUM CHLORIDE 0.9% 100 ML IV SCH (11:28)
[2016-08-16] MEDS: POTASSIUM CHLORIDE IV SCH ×2 (11:29→19:42)
[2016-08-16] MEDS: STERILE WATER IV SCH ×2 (11:29→19:42)
[2016-08-16] MEDS: SODIUM ACETATE IV SCH ×2 (11:29→19:42)
[2016-08-16 12:10] LABS: RBC,Urine 24299 /HPF (0-4); WBC,Urine 244 /HPF (0-6)
[2016-08-16 12:12] LABS: Bacteria,Urine Occasional /HPF (Few); Squamous Epithelial Cell,Urine Few /HPF (0-10)
[2016-08-16 12:13] LABS: Apearance,Urine Cloudy (Clear); Bilirubin,Urine Negative (Negative); Blood, Urine Large mg/dL (Negative); Glucose,Urine (UA) 50 mg/dL (Negative); Ketones,Urine Negative (Negative); Nitrite,Urine Negative (Negative); Protein,Urine >500 MG/DL; Urine Color Dark Red (Yellow)
[2016-08-16 12:14] LABS: Urine Urobilinogen 0.2 EU/DL (0.2-1.0)
--- NOTE | 2016-08-16 14:41 | Event Note ---
Patient was placed in the supine position on the fluoroscopy table. The catheter was cleansed with alcohol prep pad. Initial injection demonstrates positioning of the pigtail nephrostomy catheter within the renal collecting system. There are multifocal filling defects likely representing blood clots. During aspiration, several blood clots were evacuated from the catheter. Following this, there was spontaneous flow of urine into the Elder bag. 2 or 3 additional flushing were then performed. There was relatively brisk urinary drainage. The catheter was left in place and will remain connected to the drainage bag. Patient tolerated the procedure well.
--- NOTE | 2016-08-16 14:46 | Interventional Radiology Rpt ---
IR inj thru exst nephro RT Clinical Information: Limited output from the patient's right nephrostomy catheter. Check for position and patency of nephrostomy tube nephrostogram. Total fluoroscopy time: 0.6 minutes Comparison: None available Findings: Patient was placed in the supine position on the fluoroscopy table. The catheter was cleansed with alcohol prep pad. Initial injection demonstrates positioning of the pigtail nephrostomy catheter within the renal collecting system. There are multifocal filling defects likely representing blood clots. During aspiration, several blood clots were evacuated from the catheter. Following this, there was spontaneous flow of urine into the Elder bag. 2 or 3 additional flushing were then performed. There was relatively brisk urinary drainage. The catheter was left in place and will remain connected to the drainage bag. Patient tolerated the procedure well. Total number of images: 6 Impression: Several clot evacuated from the nephrostomy catheter was subsequently brisk urinary drainage. The nephrostomy catheter is in adequate position for drainage. PROCEDURE INTERPRETED AT [facility] DEPARTMENT OF RADIOLOGY Final Report Signed by: Fernandez Mercedes
[2016-08-16] MEDS: LEVOFLOXACIN INJ 750 MG in PREMIX 1 EACH IV SCH (16:12)
[2016-08-16 17:21] LABS: Creatinine 24 Hr Urine Result 0.53 G/24HR (0.95-2.49); Creatinine Clearance Urine 3.79 ML/MIN (70-135)
[2016-08-16] MEDS: ALUMINUM/MAGNES/SIMETH MAX STR 30 ML UDCUP PO PRN (18:25)
[2016-08-16] MEDS: INSULIN NPH 100 UNIT/ML SUBCUT SCH (20:46)
--- NOTE | 2016-08-17 00:06 | Nephrology Progress Note ---
Nephrology - PN: Subj Interval history: Late entry. Pts creatinine up today with decreased nephrostomy tube output. WBC decreased. Pt much more alert and answers simple questions appropriately. Urinary indices do not support RTA, confounded by urosepsis and ATN. Bld Cx and urine cx with pansensitive E.coli. Antegrade urostomy reveals obstruction with clots, relieved with brisk UOP from nephrostomy post procedure. Appreciate IR, Dr Mercedes assistance and expertise. Exam (PN)-Nephrology - Vital Signs Vital signs: Period Temp Pulse Resp BP Sys/Gill Pulse Ox Last 24 Hr 96.4 F-98.1 F 70-78 16-20 114-120/72-87 93-99 - General Appearance General appearance: well-developed, obese, chronically ill EENT: ATNC, PERRL, mucous membranes dry, hearing intact, vision intact Neck: no JVD, no thyromegaly Respiratory: no kyphosis, clear Cardiology: no murmurs, no rub Gastrointestinal: normoactive bowel sounds, no tenderness Integumentary: no rash, warm and dry Neurologic: no focal deficit, no asterixis, alert and oriented x3 Musculoskeletal: no deformities, no erythema Psychiatric: mood/affect appropriate, cooperative - Lab 08/16/16 04:16 08/16/16 04:16 Most recent lab results Calcium 7.3 MG/DL (8.5-10.1) L 08/16/16 04:16 Magnesium 2.3 MG/DL (1.8-2.4) 08/16/16 04:16 Assessment and Plan (1) Prerenal azotemia Status: Acute Assessment and plan: Continue volume resuscitation. IVFs changed. Current Visit: Yes (2) Obstructive uropathy Status: Acute Assessment and plan: Nephrostomy tube obstructed with thrombus, cleared by IR. Current Visit: Yes (3) Distal renal tubular acidosis Problem details: Treat acidosis with potassium citrate tid. IVFs changed. Status: Acute Current Visit: Yes (4) GM (acute kidney injury) Problem details: no acute indication for renal replacement therapy at this time. Status: Acute Current Visit: Yes (5) Septic shock Status: Acute Current Visit: Yes
[2016-08-17] MEDS: INSULIN LISPRO 100 UNIT/ML SUBCUT SCH ×6 (01:06→22:35)
[2016-08-17] MEDS: STERILE WATER IV SCH ×3 (03:20→19:00)
[2016-08-17] MEDS: SODIUM ACETATE IV SCH ×3 (03:20→19:00)
[2016-08-17] MEDS: POTASSIUM CHLORIDE IV SCH ×3 (03:20→19:00)
[2016-08-17 04:22] LABS: Basophils % 0.2 % (0.0-0.8); Hematocrit 37.8 VOL% (42.0-52.0); Hemoglobin 13.3 GM/DL (14.0-18.0); Immature Granulocytes % 0.9 %; Lymphocytes % 8.8 % (21.2-54.2); Mean Corpuscular HGB Conc 35.2 GM/DL (32-36); Mean Corpuscular Hemoglobin 30 PG (27-34); Mean Corpuscular Volume 85.1 FL (87-102); Mean Platelet Volume 12.5 FL (9.6-12.0); Monocytes # 0.7 10*3/uL (0.11-0.8); Monocytes % 6.9 % (1.7-12.7); Neutrophils # 8.9 10*3/uL (1.4-7.4); Neutrophils % 83.2 % (38.7-73.9); Red Blood Count 4.44 MC/CUMM (3.8-5.5); Red Cell Distribution Width 13.3 % (9.3-17.3); White Blood Count 10.8 T/CUMM (4-12)
[2016-08-17 04:27] LABS: Platelet Count 71 T/CUMM (130-400)
[2016-08-17 04:56] LABS: Albumin 1.6 G/DL (3.4-5.0); Calcium 7.5 MG/DL (8.5-10.1); Osmolality,Calculated 306.4 MOS/KG (273-304); Phosphorous 3.2 MG/DL (2.5-4.9); Potassium 3.9 MMOL/L (3.5-5.1)
[2016-08-17 05:29] LABS: Band Neutrophils 4 % (0-10); Lymphocytes 7 % (20-55); Platelet Estimate Decreased; Segmented Neutrophils 85 % (50-85); Total Cells Counted 100
[2016-08-17 05:30] LABS: Burr Cells Slight; Hypochromasia Slight
--- NOTE | 2016-08-17 08:12 | Urology Progress Note ---
Urology - PN: Subj Interval history: Patient had some blood clots in the collecting system there were evacuated by interventional radiology yesterday with increased output. I discussed the timing of treatment of the ureteral stones with Dr. Dill and Dr. Walls yesterday. Dr. Walls recommend delaying treatment of the stones until the patient's condition has improved and this approach is supported by [employer] urology textbook. Exam - Constitutional Vitals: Period Temp Pulse Resp BP Sys/Gill Pulse Ox Last 24 Hr 96.4 F-98.1 F 71-73 16-20 115-120/72-80 93-99 Results - Labs CBC & BMP: 08/17/16 03:03 08/17/16 03:03
[2016-08-17] MEDS: POTASSIUM CITRATE 10 MEQ TABLET PO SCH ×3 (09:40→21:13)
[2016-08-17] MEDS: ALUMINUM/MAGNES/SIMETH MAX STR 30 ML UDCUP PO PRN (09:40)
--- NOTE | 2016-08-17 12:26 | Hospitalist Progress Note ---
Assessment and Plan - Time spent with patient Time spent with patient: Greater than 30 minutes (37 min total time with greater than 50% of time in discussion with pt, family, and RN regarding current findings and tx plan) (1) Severe sepsis Status: Acute Assessment and plan: Secondary to obstructive uropathy; now s/p right nephrostomy. Growing E coli. Abx have been narrowed based on sensitivity. Plan to delay further urologic procedures until more medically stable. Current Visit: Yes (2) Renal failure Status: Acute Assessment and plan: obstructive uropathy. Now s/p drain. drain function improved with good UOP now. No renal recovery yet. Nephrology following. Current Visit: Yes (3) Right ureteral calculus Status: Acute Current Visit: Yes Hospitalist: Subjective Interval history: Nephrostomy drain cleared of thrombus and now draining well. No acute changes. Pt reports modest discomfort in right flank. Exam - Constitutional Vitals: Period Temp Pulse Resp BP Sys/Gill Pulse Ox Last 24 Hr 96.3 F-97.2 F 71-79 16-20 115-122/76-80 93-99 General appearance: no acute distress, other (resting quietly ) - Head Head exam: Present: normal inspection, normocephalic, atraumatic - Eye Eye exam: Present: EOMI Pupils: Present: JAIME - ENT ENT exam: Present: normal exam - Neck Neck exam: Present: normal inspection. Absent: lymphadenopathy - Respiratory Respiratory exam: Present: clear to auscultation bilaterally. Absent: accessory muscle use, chest wall tenderness, rhonchi, wheezes - Cardiovascular Cardiovascular exam: Present: regular rate and rhythm - GI/Abdominal GI/Abdominal exam: Present: normal bowel sounds. Absent: distended, tenderness - Extremities Exam Extremities exam: Present: normal inspection, full ROM - Back Exam Back exam: Present: CVA tenderness (R) - Neurological Exam Neurological exam: Present: alert, oriented X3 - Psychiatric Psychiatric exam: Present: normal affect, normal mood - Skin Skin exam: Present: normal color, warm, dry Results - Labs CBC & BMP: 08/17/16 03:03 08/17/16 03:03
--- NOTE | 2016-08-17 12:36 | Nephrology Progress Note ---
Nephrology - PN: Subj Interval history: Mr. Silva is seen in follow-up of his acute renal failure with urosepsis. He has a right percutaneous nephrostomy and a Elder catheter. He is has a generous urine output from the Elder catheter and blood-tinged output from the nephrostomy. Blood clots and debris removed from the lumen of the nephrostomy yesterday and the tubing itself is being stripped by nursing today. His creatinine is stable. We discussed ongoing antibiotic therapy and timing of definitive management of his ureteral stones with the parents. We will continue to follow his renal function as his sepsis improved. He still has a metabolic acidosis and we will modify IV fluids replace bicarb. Exam (PN)-Nephrology - Vital Signs Vital signs: Period Temp Pulse Resp BP Sys/Gill Pulse Ox Last 24 Hr 96.3 F-97.2 F 71-79 16-20 115-122/76-80 93-99 - Lab 08/17/16 03:03 08/17/16 03:03 Most recent lab results Calcium 7.5 MG/DL (8.5-10.1) L 08/17/16 03:03 Phosphorus 3.2 MG/DL (2.5-4.9) 08/17/16 03:03 Magnesium 2.3 MG/DL (1.8-2.4) 08/16/16 04:16
[2016-08-17] MEDS: INSULIN NPH 100 UNIT/ML SUBCUT SCH (22:35)
[2016-08-18] MEDS: HYDROmorphone 2 MG/1 ML VIAL IV PRN ×2 (00:31→13:04)
[2016-08-18] MEDS: INSULIN LISPRO 100 UNIT/ML SUBCUT SCH ×6 (00:51→21:34)
[2016-08-18] MEDS: POTASSIUM CHLORIDE IV SCH ×3 (03:51→13:00)
[2016-08-18] MEDS: SODIUM ACETATE IV SCH ×3 (03:51→13:00)
[2016-08-18] MEDS: STERILE WATER IV SCH ×3 (03:51→13:00)
[2016-08-18 04:28] LABS: Basophils % 0.2 % (0.0-0.8); Eosinophils % 0.2 % (0.00-10.9); Hematocrit 36.1 VOL% (42.0-52.0); Hemoglobin 12.6 GM/DL (14.0-18.0); Immature Granulocytes % 0.7 %; Immature Granulocytes Absolute 0.08 #; Lymphocytes # 1.1 10*3/uL (1.4-4.0); Lymphocytes % 10.4 % (21.2-54.2); Mean Corpuscular HGB Conc 34.9 GM/DL (32-36); Mean Corpuscular Hemoglobin 30 PG (27-34); Mean Corpuscular Volume 86.4 FL (87-102); Mean Platelet Volume 11.6 FL (9.6-12.0); Monocytes # 0.8 10*3/uL (0.11-0.8); Monocytes % 7.6 % (1.7-12.7); Neutrophils # 8.8 10*3/uL (1.4-7.4); Neutrophils % 80.9 % (38.7-73.9); Platelet Count 110 T/CUMM (130-400); Red Blood Count 4.18 MC/CUMM (3.8-5.5); Red Cell Distribution Width 13.5 % (9.3-17.3); White Blood Count 10.8 T/CUMM (4-12)
[2016-08-18 05:19] LABS: Albumin 1.5 G/DL (3.4-5.0); Calcium 7.1 MG/DL (8.5-10.1); Osmolality,Calculated 303.7 MOS/KG (273-304); Phosphorous 3.5 MG/DL (2.5-4.9); Potassium 3.7 MMOL/L (3.5-5.1)
[2016-08-18 05:57] LABS: Anisocytosis 1+; Band Neutrophils 6 % (0-10); Lymphocytes 10 % (20-55); Microcytosis 1+; Platelet Estimate Decreased; Polychromasia 1+; Segmented Neutrophils 78 % (50-85); Total Cells Counted 100
[2016-08-18] MEDS: POTASSIUM CITRATE 10 MEQ TABLET PO SCH ×3 (08:48→21:33)
--- NOTE | 2016-08-18 10:12 | Urology Progress Note ---
Urology - PN: Subj Interval history: The patient has increased output from the nephrostomy. Creatinine remains elevated Exam - Constitutional Vitals: Period Temp Pulse Resp BP Sys/Gill Pulse Ox Last 24 Hr 96 F-97.8 F 67-81 16-20 114-141/75-80 94-99 Results - Labs CBC & BMP: 08/18/16 03:16 08/18/16 03:16
--- NOTE | 2016-08-18 10:20 | Nephrology Progress Note ---
Nephrology - PN: Subj Interval history: Mr. Silva is seen in follow-up of his acute renal impairment and right ureteral obstruction. He is improved today and does not look toxic he is afebrile. Output from his nephrostomy remains blood-tinged and not voluminous. His creatinine is essentially stable at 7. Measured bicarb is 25 and I think we can decrease the sodium acetate so we will slow his IV fluid from 125 cc an hour to 75 cc an hour. With his overall condition improved he likely will be able to undergo procedure to clear the ureter fairly soon. One wonders if if he still has compromised drainage of the right renal system. On CT scan the right kidney appeared to be the better kidney. Exam (PN)-Nephrology - Vital Signs Vital signs: Period Temp Pulse Resp BP Sys/Gill Pulse Ox Last 24 Hr 96 F-97.8 F 67-81 16-20 114-141/75-80 94-99 - Lab 08/18/16 03:16 08/18/16 03:16 Most recent lab results Calcium 7.1 MG/DL (8.5-10.1) L 08/18/16 03:16 Phosphorus 3.5 MG/DL (2.5-4.9) 08/18/16 03:16 Magnesium 2.3 MG/DL (1.8-2.4) 08/16/16 04:16
--- NOTE | 2016-08-18 11:30 | Hospitalist Progress Note ---
Assessment and Plan - Time spent with patient Time spent with patient: Greater than 30 minutes (1) Severe sepsis Status: Acute Assessment and plan: Gram negative sepsis with E coli in blood and urine. Clinically improved with sepsis resolving. Current Visit: Yes (2) Renal failure Status: Acute Assessment and plan: obstructive uropathy. Now s/p drain. drain function improved with good UOP now. Creatinine stable with increasing UOP may be indicative of early renal recovery. Nephrology following Current Visit: Yes (3) Right ureteral calculus Status: Acute Current Visit: Yes Hospitalist: Subjective Interval history: Feels better today Exam - Constitutional Vitals: Period Temp Pulse Resp BP Sys/Gill Pulse Ox Last 24 Hr 96 F-97.8 F 67-81 16-20 114-141/75-80 94-99 General appearance: no acute distress - Head Head exam: Present: normocephalic, atraumatic - Eye Eye exam: Present: EOMI. Absent: conjunctival injection, scleral icterus Pupils: Present: JAIME - ENT ENT exam: Present: normal exam - Neck Neck exam: Present: normal inspection. Absent: lymphadenopathy - Respiratory Respiratory exam: Present: clear to auscultation bilaterally. Absent: accessory muscle use, rales, rhonchi, wheezes - Cardiovascular Cardiovascular exam: Present: regular rate and rhythm. Absent: gallop, rubs - GI/Abdominal GI/Abdominal exam: Present: normal bowel sounds. Absent: distended, guarding ( urostomy drain right flank) - Extremities Exam Extremities exam: Present: normal inspection, full ROM - Back Exam Back exam: Present: CVA tenderness (R) - Neurological Exam Neurological exam: Present: alert, oriented X3 - Psychiatric Psychiatric exam: Present: normal affect, normal mood - Skin Skin exam: Present: normal color, warm, dry Results - Labs CBC & BMP: 08/18/16 03:16 08/18/16 03:16
[2016-08-18] MEDS: LEVOFLOXACIN INJ 750 MG in PREMIX 1 EACH IV SCH (16:29)
[2016-08-18] MEDS: INSULIN NPH 100 UNIT/ML SUBCUT SCH (21:33)
[2016-08-19] MEDS: INSULIN LISPRO 100 UNIT/ML SUBCUT SCH ×6 (01:58→21:34)
[2016-08-19] MEDS: ONDANSETRON 4 MG/2 ML VIAL IV PRN (03:38)
[2016-08-19] MEDS: HYDROmorphone 2 MG/1 ML VIAL IV PRN ×3 (03:38→23:57)
[2016-08-19 05:18] LABS: Basophils % 0.2 % (0.0-0.8); Eosinophils % 0.3 % (0.00-10.9); Hematocrit 36.8 VOL% (42.0-52.0); Hemoglobin 12.7 GM/DL (14.0-18.0); Immature Granulocytes % 1.4 %; Immature Granulocytes Absolute 0.18 #; Lymphocytes % 7.2 % (21.2-54.2); Mean Corpuscular HGB Conc 34.5 GM/DL (32-36); Mean Corpuscular Hemoglobin 30 PG (27-34); Mean Corpuscular Volume 87.6 FL (87-102); Mean Platelet Volume 11.1 FL (9.6-12.0); Monocytes # 0.7 10*3/uL (0.11-0.8); Monocytes % 5.6 % (1.7-12.7); Neutrophils # 11.2 10*3/uL (1.4-7.4); Neutrophils % 85.3 % (38.7-73.9); Platelet Count 173 T/CUMM (130-400); Red Cell Distribution Width 13.3 % (9.3-17.3); White Blood Count 13.1 T/CUMM (4-12)
[2016-08-19 05:57] LABS: Albumin 1.4 G/DL (3.4-5.0); Calcium 6.9 MG/DL (8.5-10.1); Osmolality,Calculated 306.5 MOS/KG (273-304); Phosphorous 3.9 MG/DL (2.5-4.9); Potassium 3.3 MMOL/L (3.5-5.1)
[2016-08-19 06:05] LABS: Platelet Estimate Normal
--- NOTE | 2016-08-19 07:44 | Urology Progress Note ---
Urology - PN: Subj Interval history: The patient's nephrostomy urine is clearing. His creatinine is down slightly. I will remove his Elder today Exam - Constitutional Vitals: Period Temp Pulse Resp BP Sys/Gill Pulse Ox Last 24 Hr 96.7 F-99 F 53-87 14-20 113-157/64-93 95-98 Results - Labs CBC & BMP: 08/19/16 04:37 08/19/16 04:37
[2016-08-19] MEDS: POTASSIUM CITRATE 10 MEQ TABLET PO SCH ×3 (08:38→21:36)
--- NOTE | 2016-08-19 08:46 | Nephrology Progress Note ---
Nephrology - PN: Subj Interval history: Pt states "I feel maybe a little better". Had soft diet today. Tolerated well without N/V. Denies SOB. Admits to left shoulder pain. UOP from right nephrostomy tube less than expected after obstructive uropathy, usually get a post obstructive diuresis if completely resolved. UOP from left kidney improved. Creatinine down to 6.8 from 7 yesterday. WBC up slightly, no fever. Exam (PN)-Nephrology - Vital Signs Vital signs: Period Temp Pulse Resp BP Sys/Gill Pulse Ox Last 24 Hr 97.2 F-99 F 53-90 14-20 113-157/64-93 95-98 - General Appearance General appearance: well-developed, chronically ill EENT: ATNC, PERRL, mucous membranes dry, hearing intact, vision intact Neck: no JVD, no thyromegaly Respiratory: no kyphosis, clear Cardiology: no murmurs, no rub, edema (left hand and arm edematous, right upper arm lateral aspect tender and warm to palpation) Gastrointestinal: normoactive bowel sounds, no tenderness Integumentary: no rash, warm and dry Neurologic: no focal deficit, no asterixis, alert and oriented x3 Musculoskeletal: no deformities, no erythema Psychiatric: mood/affect appropriate, cooperative - Lab 08/19/16 04:37 08/19/16 04:37 Most recent lab results Calcium 6.9 MG/DL (8.5-10.1) L 08/19/16 04:37 Phosphorus 3.9 MG/DL (2.5-4.9) 08/19/16 04:37 Magnesium 2.3 MG/DL (1.8-2.4) 08/16/16 04:16 Assessment and Plan (1) Prerenal azotemia Status: Resolved Assessment and plan: Continue current maintenance IVFs. Current Visit: Yes (2) GM (acute kidney injury) Problem details: no acute indication for renal replacement therapy at this time. Status: Acute Current Visit: Yes (3) Septic shock Status: Resolved Current Visit: Yes
--- NOTE | 2016-08-19 09:57 | Ultrasound Report ---
Exam: Left upper extremity venous Doppler/duplex ultrasound Comparison: None Clinical history: Left arm swelling Technique: Duplex scan of the left upper extremity veins using th B- mode/grayscale imaging and Dopplers spectral analysis and color flow. Findings: There is normal flow in the left internal jugular, subclavian, axillary, basilic, brachial, cephalic, radial, and ulnar veins. Normal compression and augmentation. Major venous structures of the left upper extremity demonstrating normal course and caliber with normal color-flow study and spectral analysis. Impression: No evidence to suggest venous thrombosis within the left upper extremity. Ultrasound images were captured and stored. PROCEDURE INTERPRETED AT [facility] DEPARTMENT OF RADIOLOGY Final Report Signed by: Dr. Cecily Jackson
[2016-08-19] MEDS: STERILE WATER IV SCH (13:10)
[2016-08-19] MEDS: SODIUM ACETATE IV SCH (13:10)
[2016-08-19] MEDS: POTASSIUM CHLORIDE IV SCH (13:10)
[2016-08-19] MEDS: DESITIN 4OZ/NYSTATIN 15 GRAM MIXTURE PASTE TOP SCH ×2 (15:22→21:34)
--- NOTE | 2016-08-19 15:37 | Hospitalist Progress Note ---
Assessment and Plan (1) Right ureteral calculus Status: Acute Assessment and plan: Status post right nephrostomy tube placed by Dr. Griffin on August 14, 2016. Dr. Carr has seen him and is not planning to do the surgery until his creatinine improves. Current Visit: Yes (2) GM (acute kidney injury) Problem details: no acute indication for renal replacement therapy at this time. Status: Acute Assessment and plan: No improvement with IV hydration and nephrostomy. Developing anasarca, Dr. Dill managing Current Visit: Yes (3) Hypokalemia Status: Acute Assessment and plan: Replacing recheck in a.m. Current Visit: Yes (4) Severe sepsis Status: Acute Assessment and plan: resolved, Due to bacteremia growing E. coli sensitive to Levaquin IV Current Visit: Yes (5) Ureteral obstruction Status: Acute Assessment and plan: Due to large renal calculi measuring 9 mm and another one measuring 4 mm, nephrostomy tube placed Current Visit: Yes (6) Pyonephrosis Status: Acute Assessment and plan: Due to UTI from stone, improving with nephrostomy tube. Growing E. coli sensitive to Levaquin Current Visit: Yes Hospitalist: Subjective Interval history: Dr. Carr wants to remove the Elder today. I wanted to Hep-Lock his IV fluids but Dr. Dill wants to continue IVF for now. Patient has anasarca in his upper and lower extremities. He still has a nephrostomy tube. Spoke with Dr. Carr he is not in a big hurry to remove that stone until his creatinine normalizes. This may have to be done as an outpatient. Exam - Constitutional Vitals: Period Temp Pulse Resp BP Sys/Gill Pulse Ox Last 24 Hr 97.2 F-99 F 53-90 14-20 113-157/64-93 95-98 Exam: Heart Rate-[RRR] Lungs-[CTAB] GI-[+bs soft, NT] Ext-[anasarca UE and LE] Neuro [Motor 5/5], [alert and oriented times 3] psych [normal mood and affect] General [no acute distress] Results - Labs CBC & BMP: 08/19/16 04:37 08/19/16 04:37 Lab Results: I have reviewed the past 24 hour labs
[2016-08-19] MEDS: INSULIN GLARGINE 100 UNIT/ML SUBCUT SCH (17:17)
[2016-08-20] MEDS: INSULIN LISPRO 100 UNIT/ML SUBCUT SCH ×6 (00:40→21:20)
[2016-08-20] MEDS: ONDANSETRON 4 MG/2 ML VIAL IV PRN (01:11)
[2016-08-20] MEDS: POTASSIUM CHLORIDE IV SCH (02:24)
[2016-08-20] MEDS: STERILE WATER IV SCH (02:24)
[2016-08-20] MEDS: SODIUM ACETATE IV SCH (02:24)
[2016-08-20 05:56] LABS: Albumin 1.5 G/DL (3.4-5.0); Calcium 7.2 MG/DL (8.5-10.1); Phosphorous 3.3 MG/DL (2.5-4.9); Potassium 3.3 MMOL/L (3.5-5.1)
[2016-08-20] MEDS: HYDROmorphone 2 MG/1 ML VIAL IV PRN ×4 (06:49→21:13)
--- NOTE | 2016-08-20 07:56 | Urology Progress Note ---
Urology - PN: Subj Interval history: The patient's creatinine is stable. He had increased output from the nephrostomy tube yesterday but is complaining of some right flank pain today which would suggest there may be obstruction in the nephrostomy tube. He has more hematuria from the nephrostomy tube today. I will get the nurse to irrigate this to make sure that it remains patent. My plan at this time is either to treat the ureteral stones with ureteroscopy or lithotripsy but I am going to wait until his creatinine improves as much as possible. And if he has decreased output from the right kidney will probably lean toward ureteroscopy rather than lithotripsy Exam - Constitutional Vitals: Period Temp Pulse Resp BP Sys/Gill Pulse Ox Last 24 Hr 97.9 F-99.7 F 86-101 18-20 140-155/73-84 95-97 Results - Labs CBC & BMP: 08/19/16 04:37 08/20/16 04:46
[2016-08-20] MEDS ORDERED: POTASSIUM CHLORIDE 20 MEQ TABLET PO ONE (08:09)
--- NOTE | 2016-08-20 08:15 | Nephrology Progress Note ---
Nephrology - PN: Subj Interval history: Pt denies SOB. Admits to right flank pain. Creatinine unchanged at 6.8 for eGFR 13cc/min. No uremic symptoms. Exam (PN)-Nephrology - Vital Signs Vital signs: Period Temp Pulse Resp BP Sys/Gill Pulse Ox Last 24 Hr 97.9 F-99.7 F 86-101 18-20 140-155/73-84 95-97 - General Appearance General appearance: well-developed, chronically ill EENT: ATNC, PERRL Neck: no JVD, no thyromegaly Respiratory: no kyphosis, clear Cardiology: no murmurs, no rub Gastrointestinal: normoactive bowel sounds, no tenderness Integumentary: no rash, warm and dry Neurologic: no focal deficit, no asterixis Musculoskeletal: no deformities, no erythema Psychiatric: mood/affect appropriate, cooperative - Lab 08/19/16 04:37 08/20/16 04:46 Most recent lab results Calcium 7.2 MG/DL (8.5-10.1) L 08/20/16 04:46 Phosphorus 3.3 MG/DL (2.5-4.9) 08/20/16 04:46 Magnesium 2.3 MG/DL (1.8-2.4) 08/16/16 04:16 Assessment and Plan (1) GM (acute kidney injury) Problem details: no acute indication for renal replacement therapy at this time. Status: Acute Assessment and plan: Requires obstructive stone removal. Followed by Urology. Current Visit: Yes (2) Septic shock Status: Resolved Current Visit: Yes
[2016-08-20] MEDS: INSULIN GLARGINE 100 UNIT/ML SUBCUT SCH (09:00)
[2016-08-20] MEDS: POTASSIUM CITRATE 10 MEQ TABLET PO SCH ×3 (09:00→21:31)
[2016-08-20] MEDS: DESITIN 4OZ/NYSTATIN 15 GRAM MIXTURE PASTE TOP SCH ×2 (09:01→20:33)
[2016-08-20] MEDS: DEXT 5% NACL 0.45% KCL 40 MEQ 40 MEQ/1,000 ML BAG IV SCH ×2 (09:25→21:30)
[2016-08-20] MEDS: ALBUMIN 25% 25 GM in PREMIX 1 EACH IV SCH ×2 (09:28→16:11)
[2016-08-20] MEDS ORDERED: HYDROmorphone 2 MG/1 ML VIAL ONE (15:35)
--- NOTE | 2016-08-20 15:54 | Event Note ---
Urine output dropped off from right percutaneous nephrostomy. Perc neph injected with contrast and pigtail shown to be withdrawn from the kidney by at least 10cm. Analysis of the dressing shows the tube to have been pulled out by at least 10cm as well. Pt ate lunch 3 hours earlier. Attempted a single pass to the kidney with and Accustick needle but patient unable to tolerate due to pain. His infection is well controlled on IV abx and he can tolerate overnight without the perc neph. Plan a new right perc neph in the morning, after NPO overnight, with assistance of anesthesia.
[2016-08-20] MEDS: LEVOFLOXACIN INJ 500 MG in PREMIX 1 EACH IV SCH (16:10)
--- NOTE | 2016-08-20 16:11 | Hospitalist Progress Note ---
Assessment and Plan (1) Right ureteral calculus Status: Acute Assessment and plan: Status post right nephrostomy tube. Patient accidentally pulled out his nephrostomy tube by [address] Griffin will replace it tomorrow. Elder was removed yesterday patient still retaining over 200 mL's of urine. Continue bladder scans with straight cath every 6 hours Current Visit: Yes (2) GM (acute kidney injury) Problem details: no acute indication for renal replacement therapy at this time. Status: Acute Assessment and plan: No improvement with IV hydration and nephrostomy. Dr. Dill feels he does not need dialysis Current Visit: Yes (3) Hypokalemia Status: Acute Assessment and plan: Replacing recheck in a.m. Current Visit: Yes (4) Severe sepsis Status: Acute Assessment and plan: resolved, cont Levaquin IV, repeat blood cx to see if clear Current Visit: Yes (5) Ureteral obstruction Status: Acute Assessment and plan: Dr. Carr does not plan to remove the stone until kidneys improve. Current Visit: Yes (6) Pyonephrosis Status: Acute Assessment and plan: replace nephrostomy tube in am Current Visit: Yes Hospitalist: Subjective Interval history: Patient's kidneys have not improved. The nephrostomy drain is still draining pure blood. Patient is still having considerable pain. Family is very concerned that his kidneys are not improving had long conversation with patient' s parents. Patient accidentally pulled out his percutaneous drain at least 10 cm. Attempts to replace that were not well tolerated. A new drain will be placed tomorrow. Exam - Constitutional Vitals: Period Temp Pulse Resp BP Sys/Gill Pulse Ox Last 24 Hr 98.4 F-99.7 F 87-101 18-22 125-155/73-97 93-97 Exam: Heart Rate-[RRR] Lungs-[CTAB] GI-[+bs soft, NT] Ext-[anasarca UE and LE] Neuro [Motor 5/5], [alert and oriented times 3] psych [depressed mood and affect] General [mild acute distress due to pain] Results - Labs CBC & BMP: 08/19/16 04:37 08/20/16 04:46 Lab Results: I have reviewed the past 24 hour labs
--- NOTE | 2016-08-20 16:12 | Interventional Radiology Rpt ---
IR inj thru exst nephro RT Indication: Abrupt loss of urine output right percutaneous nephrostomy. RIGHT PERCUTANEOUS NEPHROSTOGRAM INJECTION Description: Under sterile conditions, the right percutaneous nephrostomy catheter was injected. The catheter is dislodged by at least 10 cm from the right kidney, with the pigtail in the perinephric fat inferior to the kidney. Pigtail portion is still formed. The pigtail was released and the catheter removed without difficulty. An attempt was then made to recanalize the tract with a Kumpe catheter, unsuccessfully. Patient had lunch and conscious sedation and/or anesthesia is not available prior to 6 hours n.p.o. Approximately 1 cm superior to the initial puncture site, a second AccuStick needle was advanced under sonographic guidance. However, patient could not tolerate a simple needle advancement towards the kidney due to pain intolerance. Therefore, needle was removed. Patient will be held n.p.o. after midnight tonight, with plans for a new percutaneous nephrostomy tomorrow with the assistance of anesthesia. From an infectious standpoint, there've been no issues for several days while on antibiotic therapy. He should tolerate overnight absence of urinary drainage. Fluoroscopy: 0.4 minutes. Contrast: Omnipaque 350, 2 cc. Impression: Dislodged right percutaneous nephrostomy from the renal pelvis as described. Unable to recanalize tract. Repeat Percutaneous nephrostomy tomorrow morning, n.p.o. after midnight. PROCEDURE INTERPRETED AT [facility] DEPARTMENT OF RADIOLOGY Final Report Signed by: Lincoln Griffin M.D.
--- NOTE | 2016-08-20 20:47 | XRay Report ---
Exam: Chest 2 views Date: August 20, 2016 at 8:14 PM Comparison: Chest 1 view August 13, 2016 Reason: Shortness of breath Findings: A right IJ catheter is present with its distal tip at the SVC/right atrial junction. The cardiac silhouette is normal in size. The lungs are poorly expanded, and there is minimal atelectasis at the lung bases. There is also questionable minimal pleural fluid at the posterior lung bases on the lateral view. No pneumothorax is identified. No acute osseous process is seen. Impression: The lungs are poorly expanded, and there is minimal atelectasis at the lung bases. There is also questionable minimal pleural fluid at the posterior lung bases on the lateral view. PROCEDURE INTERPRETED AT [facility] DEPARTMENT OF RADIOLOGY Final Report Signed by: Dr. Adin Almonte
[2016-08-21] MEDS: INSULIN LISPRO 100 UNIT/ML SUBCUT SCH ×6 (00:15→21:50)
[2016-08-21] MEDS: ALBUMIN 25% 25 GM in PREMIX 1 EACH IV SCH ×3 (00:22→17:11)
[2016-08-21] MEDS: ONDANSETRON 4 MG/2 ML VIAL IV PRN (02:49)
[2016-08-21] MEDS: HYDROmorphone 2 MG/1 ML VIAL IV PRN ×4 (02:52→20:29)
[2016-08-21 05:23] LABS: Albumin 2.2 G/DL (3.4-5.0); Phosphorous 4.2 MG/DL (2.5-4.9); Potassium 4.1 MMOL/L (3.5-5.1)
--- NOTE | 2016-08-21 07:49 | EKG Report ---
Stationary ECG Study [facility] Test Date: 08/21/2016 7:39:28 AM Pat Name: NIMCO ARREAGA Department: Room: 283 Gender: M Manager Heart: RUY : 1965 Requested by: Bull Fuentes Order Number: [id number] Reading MD: MARKEL MATOS Intervals [place] Rate: 74 P: 11 OK: 150 QRS: -5 QRSD: 105 T: 15 QT: 424 QTc: 452 Interpretive Statements SINUS RHYTHM At 74 bpm Electronically Signed On 08-26-16 15:27:50 CDT by MARKEL MATOS [email or web address]
--- NOTE | 2016-08-21 07:59 | Urology Progress Note ---
Urology - PN: Subj Interval history: The nephrostomy tube has been displaced and Dr. Griffin replace it today Exam - Constitutional Vitals: Period Temp Pulse Resp BP Sys/Gill Pulse Ox Last 24 Hr 97.4 F-99.2 F 77-93 18-22 125-155/69-97 92-96 Results - Labs CBC & BMP: 08/19/16 04:37 08/21/16 04:12
[2016-08-21] MEDS: POTASSIUM CITRATE 10 MEQ TABLET PO SCH ×3 (08:23→20:35)
[2016-08-21] MEDS: INSULIN GLARGINE 100 UNIT/ML SUBCUT SCH (08:23)
--- NOTE | 2016-08-21 08:35 | IR History and Physical Update ---
IR Pre-Procedure - History and Physical Reason for procedure:: 50 yoM w/ dislodged right perc neph. Perc neph initially placed for urosepsis from right pyonephrosis from prox ureter stone. - Dictation Physical: refer to H&P completed by admitting physician - Physical Exam Vital Signs: Last Vital Signs Temp 98.3 F 08/21/16 07:56 Pulse 79 08/21/16 08:00 Resp 20 08/21/16 08:00 BP 130/72 08/21/16 07:56 Pulse Ox 93 L 08/21/16 07:56 Mental Status: alert and oriented - Sedation IR anesthesia plan for sedation: anesthesia consulted ASA Class: II - Risks Risks: Procedures explained. Risks discussed include, but not limited to, the following:[pain, bleeding, infection ] All questions answered. The following alternatives were discussed:[ observation] Risks and benefits discussed with: patient Consent obtained from: patient Assessment and Plan - Time spent with patient Time spent with patient: Less than 30 minutes (1) Pyonephrosis Status: Acute Assessment and plan: Assessment: Obstructing proximal right ureter calculus with resultant pyelonephrosis of the right kidney. Emergent percutaneous nephrostomy necessary. Plan: Emergent right percutaneous nephrostomy. Risks including discussed with patient's on telephone, witnessed by RN. Anesthesia consulted for CV monitoring and airway management. 09:18 @ 08/14/16: [place] bag drainage of right perc neph. No flushing catheter until urine clears to minimize risk of bacteremia. 08:43 @ 08/15/16: Continue gravity bag drainage right percutaneous nephrostomy. Call with questions. 08:35 @ 08/21/16: Plan replacement of perc neph w/ GETA today. Current Visit: Yes
[2016-08-21] MEDS: DESITIN 4OZ/NYSTATIN 15 GRAM MIXTURE PASTE TOP SCH ×2 (08:37→22:19)
--- NOTE | 2016-08-21 09:49 | Post Interventional Procedure ---
Pre-op diagnosis: Obstructing right ureter stone, pyonephrosis, dislodged perc neph Post-op diagnosis: same Procedure: Replacement of right perc neph, new puncture Contrast: Omni 350, 15 cc Flouroscopy: 3.1 min Radiologist: Lincoln Griffin Anesthesia: MAC Specimens: none sent Estimated blood loss: none Complications: none Condition: stable Description/Findings: 10 Fr pigtail nephorostomy drain placement right kidney Assessment and Plan (1) Pyonephrosis Status: Acute Assessment and plan: Assessment: Obstructing proximal right ureter calculus with resultant pyelonephrosis of the right kidney. Emergent percutaneous nephrostomy necessary. Plan: Emergent right percutaneous nephrostomy. Risks including discussed with patient's on telephone, witnessed by RN. Anesthesia consulted for CV monitoring and airway management. 09:18 @ 08/14/16: [place] bag drainage of right perc neph. No flushing catheter until urine clears to minimize risk of bacteremia. 08:43 @ 08/15/16: Continue gravity bag drainage right percutaneous nephrostomy. Call with questions. 08:35 @ 08/21/16: Plan replacement of perc neph w/ GETA today. 09:49 @ 08/21/16: Perc neph replaced. DO NOT pull on perc neph. DO NOT release pigtail lock at the hub. DO NOT flush unless occluded from clot. If occluded, flush at stop cock with both retrograde and antegrade irrigation. DO NOT "milk" the tube or connectors. Current Visit: Yes
--- NOTE | 2016-08-21 09:58 | Nephrology Progress Note ---
Nephrology - PN: Subj Interval history: Pt in IR for replacement of nephrostomy tube on am rounds. Creatinine 6.3 from 6.8. No acute overnight events. Exam (PN)-Nephrology - Vital Signs Vital signs: Period Temp Pulse Resp BP Sys/Gill Pulse Ox Last 24 Hr 97.4 F-99.2 F 77-93 18-22 126-155/69-97 92-96 Exam: not available for examination. - Lab 08/19/16 04:37 08/21/16 04:12 Most recent lab results Calcium 7.0 MG/DL (8.5-10.1) L 08/21/16 04:12 Phosphorus 4.2 MG/DL (2.5-4.9) 08/21/16 04:12 Magnesium 2.3 MG/DL (1.8-2.4) 08/16/16 04:16 Assessment and Plan (1) GM (acute kidney injury) Problem details: no acute indication for renal replacement therapy at this time. Status: Acute Assessment and plan: Requires obstructive stone removal. Followed by Urology. MAG3 scan to assess differential renal function/perfusion after new nephrostomy tube placed. I desire DMSA scan with better differentiation, but not available. Consider transfer to higher level of care for stone removal. Current Visit: Yes (2) Septic shock Status: Resolved Current Visit: Yes
[2016-08-21] MEDS ORDERED: MIDAZOLAM 2 MG/2 ML VIAL ONE (10:34)
[2016-08-21] MEDS ORDERED: SEVOFLURANE 1 UNIT/15 MINUTE INH ONE (10:34)
[2016-08-21] MEDS ORDERED: fentaNYL 100 MCG/2 ML VIAL ONE (10:35)
--- NOTE | 2016-08-21 11:09 | Discharge Summary ---
Hospital Course - Time spent with patient Time with patient DS: Greater than 30 minutes (60 min) Diagnosis - Discharge Diagnosis (1) Right ureteral calculus Status: Acute (2) GM (acute kidney injury) Status: Acute (3) Hypokalemia Status: Acute (4) Severe sepsis Status: Acute (5) Ureteral obstruction Status: Acute (6) Pyonephrosis Status: Acute Discharge Plan - Discharge Data Disposition: Disch/Xfer-[facility] Term Hos Condition at Discharge: Stable Discharge Diet: other (renal diet ) Activity: resume usual activities as tolerated Hygiene: no restrictions Weight Bearing at Discharge: full weight bearing - Discharge Medications New Alum/Mag/Simeth Max Str Liquid [Mylanta Max Strength Liquid] 30 ml PO Q4H PRN #0 PRN Reason: Dyspepsia Dextrose 50% [D50] 25 gm IV PRN PRN #0 vial PRN Reason: Hypoglycemia with IV access Glucagon 1 mg IM PRN PRN #0 vial PRN Reason: Hypoglycemia w/o IV access HYDROmorphone INJ [Dilaudid Inj] 0.5 mg IV Q4H PRN #0 vial PRN Reason: Pain Severe (8-10) Insulin Glargine [Lantus] 12 unit SUBCUT DAILY unit Insulin Lispro [HumaLOG] See Protocol SUBCUT Q4H unit Ondansetron Inj [Zofran Inj] 4 mg IV Q4H PRN #0 vial PRN Reason: Nausea/Vomiting Potassium Citrate [Urocit K] 20 meq PO TID tablet Albumin 25% 25 gm IV Q8H vial Levofloxacin Inj [Levaquin Inj] 500 mg IV Q48H Discontinued metFORMIN [Glucophage] 1,000 mg PO BID W/MEALS Pantoprazole Tab [Protonix Tab] 40 mg PO DAILY Metoprolol Tartrate 50 mg PO BID - Follow Up or Referral - Forms/Instructions Exam - Constitutional Vitals: Period Temp Pulse Resp BP Sys/Gill Pulse Ox Last 24 Hr 97.4 F-99.2 F 77-102 18-22 126-155/69-97 92-97 General appearance: no acute distress, over weight - Respiratory Respiratory exam: Present: clear to auscultation bilaterally. Absent: rhonchi, wheezes - Cardiovascular Cardiovascular exam: Present: regular rate and rhythm. Absent: systolic murmur - GI/Abdominal GI/Abdominal exam: Present: normal bowel sounds, soft. Absent: tenderness - Extremities Exam Extremities exam: Present: normal capillary refill, edema - Neurological Exam Neurological exam: Present: alert, oriented X3 - Psychiatric Psychiatric exam: Present: normal affect, normal mood Discharge Results Procedures and tests throughout hospitalization: Pending Orders 08/20/16 IR cath exchang nephrostomy RT Routine 08/20/16 16:34 Blood Culture Stat 08/21/16 04:00 IR nephrostomy perc RT IN AM 08/21/16 08:55 NM renal flow and function Routine 08/22/16 04:00 Comp Blood Count Auto Diff IN AM Renal Function Panel IN AM Renal Function Panel IN AM 08/23/16 04:00 Comp Blood Count Auto Diff IN AM Renal Function Panel IN AM 08/24/16 04:00 Comp Blood Count Auto Diff IN AM Renal Function Panel IN AM Labs on day of discharge: Labs from last 24 hours 08/21/16 08/21/16 08/20/16 07:36 04:12 20:32 Sodium 136 Potassium 4.1 Chloride 97 L Carbon Dioxide 31 Anion Gap 12.1 BUN 63 H D Creatinine 6.30 H GFR Calculation 13 BUN/Creatinine Ratio 10.00 Glucose 176 H POC Glucose 165 H 223 H Calculated Osmolality 293.0 Calcium 7.0 L Phosphorus 4.2 Albumin 2.2 L 08/20/16 08/20/16 16:34 12:06 Sodium Potassium Chloride Carbon Dioxide Anion Gap BUN Creatinine GFR Calculation BUN/Creatinine Ratio Glucose POC Glucose 168 H 133 H Calculated Osmolality Calcium Phosphorus Albumin DS: Provider Date of admission: 08/13/16 21:56 Primary care physician: . No PCP Attending physician on admission: Hemal Cole MD Consults: 08/13/16 22:00 Consult to Physician [CONS] Routine Comment: On-call physician/obstru kidney stone/septic shock Consulting Provider: Iraj Carr Consulting Provider Notified: Yes When should Consulting Provider be notified: Now Consult to Specialist Group: Urology When should Consulting Provider be notified: Now 08/13/16 22:07 Consult to Physician [CONS] Routine Comment: ED physician/Dr. Iraj Claudio for central line Consulting Provider: Consulting Provider Notified: Yes When should Consulting Provider be notified: Now 08/14/16 00:55 Consult to Physician [CONS] Routine Comment: On-call physician/obstr. ureter/UTI/ureteral stone Consulting Provider: Lincoln Griffin Consult to Specialist Group: Interventional Radiology When should Consulting Provider be notified: Now 08/14/16 07:37 Consult to Anesthesiology [CONS] Routine Consulting Provider: Reason for Anesthesiology: Other Consult Comment: ANESTHESIA FOR EMERGENT PERC NEPH TUBE/IN SP2/RADIOLOGY 08/14/16 15:34 Consult to Pharmacy [CONS] Routine Reason for Pharmacy Consult: Dose/Manage Vancomycin Dose/Manage Gentamicin 08/15/16 05:08 Consult to Physician [CONS] Routine Comment: Consulting Provider: Edd Dill Consulting Provider Notified: Yes Consult to Specialist Group: Nephrology When should Consulting Provider be notified: In am Person Notified: magy Date Notified: 08/15/16 Time Notified: 08:30 08/20/16 15:55 Consult to Anesthesiology [CONS] Routine Consulting Provider: Reason for Anesthesiology: Pre-op Clearance Consult Comment: Dislodged perc neph, replace in AM, pain intollerance Discharging clinician: Yoon Cobian MD
[2016-08-21] MEDS: POTASSIUM CHLORIDE IV SCH ×2 (11:16→11:17)
[2016-08-21] MEDS: STERILE WATER IV SCH ×2 (11:16→11:17)
[2016-08-21] MEDS: SODIUM ACETATE IV SCH ×2 (11:16→11:17)
[2016-08-21] MEDS: DEXT 5% NACL 0.45% KCL 40 MEQ 40 MEQ/1,000 ML BAG IV SCH (11:22)
--- NOTE | 2016-08-21 11:44 | Anesthesia Post-Op ---
Anesthesia Post OP - Post Ansesthetic Evaluation Patient seen in post op: Yes Resp: within normal limits CV: within normal limits Mental: within normal limits Temp: within normal limits [id number]: within normal limits Nausea and Vomiting: within normal limits Pain: within normal limits
--- NOTE | 2016-08-21 13:11 | Interventional Radiology Rpt ---
IR nephrostomy perc RT Indication: Dislodged right percutaneous nephrostomy. Patient has a obstructing proximal right ureter stone and presented last week and urosepsis from pyelonephrosis. He will require relatively long-term percutaneous drainage. PERCUTANEOUS NEPHROSTOMY RIGHT KIDNEY Description: A formal timeout was performed. Maximum sterile barrier technique was used. General endotracheal anesthesia was induced. The patient was positioned prone on the fluoroscopy table. The right back was prepped and draped in a sterile fashion. Under sonographic guidance, an AccuStick needle was advanced into the nondilated urinary collecting system. A captured sonographic image documents the needle position. The needle was slowly withdrawn while aspirating. After the second pass, bloody and slightly cloudy urine returned in the hub, a very gentle antegrade nephroureterogram was performed to confirm positioning of the tip of the needle. Tip of the needle was in the upper calyx. A 21-gauge Chiba needle was then advanced, under fluoroscopy, directly into the posterior right mid calyx. This needle was cannulated with a wire which was advanced into the proximal right ureter where it met obstruction from the stone with associated edema of the ureter. The Chiba needle was exchanged over the wire for an AccuStick sheath, which was then exchanged for a 10 Croatian pigtail drainage catheter. The first AccuStick access needle was then removed. A gentle antegrade nephrostogram was performed showing satisfactory positioning of the pigtail in the renal pelvis. The catheter was anchored in place with 3-0 Prolene and connected to a drainage bag. Patient was awakened from anesthesia without difficulty, and transferred to recovery in stable condition. The patient tolerated the procedure well. Contrast: Omnipaque 350, 15 cc. Fluoroscopy time: 3.1 minutes. Medications: General endotracheal anesthesia. Impression: Right percutaneous nephrostomy. PROCEDURE INTERPRETED AT [facility] DEPARTMENT OF RADIOLOGY Final Report Signed by: Lincoln Griffin M.D.
--- NOTE | 2016-08-21 15:26 | Nuclear Medicine Report ---
Referring Physician: Edd Dill Exam: NM renal flow and function Date: August 21, 2016 Reason: Acute renal failure not improving with percutaneous nephrostomy Comparison: CT abdomen and pelvis without contrast August 13, 2016 Technique: The patient was administered 9.8 mCi of technetium-99m MAG3 IV. Anterior images of the kidneys were acquired over 23 minutes. Findings: Percent uptake left kidney: 58% Percent uptake right kidney 42% Time to peak left: 6.18 minutes Time to peak right: 20.68 minutes Peak to 1/2 peak left: 36.93 Peak to 1/2 peak right: NA 20 minutes/peak ratio left: 0.76 20 minutes/peak ratio right: 0.87 There is decreased perfusion at the right kidney compared to the left on the obtained anterior image. Impression: 1. There is decreased at the right kidney compared to the left on the anterior image as well as decreased time to peak and persistent activity at the right kidney. The patient has a history of hydronephrosis and ureteral stones as well as recent placement of a right nephrostomy tube. On the basis of this nuclear medicine study, these findings suggest obstruction and partial renal failure. These findings may improve over time given the recent placement of the nephrostomy tube. Percent uptake at the right kidney is 42%. 2. There is delayed time to peak at the left kidney as well as some persistent activity at the left kidney. These findings are likely related to partial renal failure with residual renal function. Partial obstruction is difficult to exclude on the basis of this study, but no obstruction is seen on the recent CT. Percent uptake at the left kidney is 58%. PROCEDURE INTERPRETED AT [facility] DEPARTMENT OF RADIOLOGY Final Report Signed by: Dr. Adin Almonte
--- NOTE | 2016-08-21 16:00 | Hospitalist Progress Note ---
Assessment and Plan (1) Right ureteral calculus Status: Acute Assessment and plan: repeat right nephrostomy tube placed today by Dr. Griffin. Hopefully swelling will improve where Dr. Griffin can place a stent Current Visit: Yes (2) GM (acute kidney injury) Problem details: no acute indication for renal replacement therapy at this time. Status: Acute Assessment and plan: Urine output good but no change in creatinine, see discussion with [facility], Dr. Dill ordered a renal nuclear scan which shows obstruction and partial renal failure on right. Left kidney shows partiall renal failure. Partial obstruction difficult to rule out. 58% on left Current Visit: Yes (3) Hypokalemia Status: Acute Assessment and plan: cont Replacing Current Visit: Yes (4) Severe sepsis Status: Acute Assessment and plan: resolved, cont Levaquin IV, repeat blood cx pending Current Visit: Yes (5) Pyonephrosis Status: Acute Assessment and plan: replaced nephrostomy tube today Current Visit: Yes Hospitalist: Subjective Interval history: Had conversation with Dr. Dill today. He really feels that the stone needs to be removed for the kidney to improve. I have contacted [facility] and spoke with their urologist cash controller. He told me he would not take him on his service but if the make ready worker would be willing to take him then he would help place a stent but he wanted to wait for the results of the repeat nephrostomy. Discussed with Dr. Griffin, he had good success placing the nephrostomy tube again today. Patient had immediate drainage. Dr. Griffin feels that if the swelling will go down he may be able to pass a wire around the stone and place a stent. Currently he attempted to place the wire but could not. Dr. Carr is not willing to proceed at this time with a stent. Exam - Constitutional Vitals: Period Temp Pulse Resp BP Sys/Gill Pulse Ox Last 24 Hr 97.4 F-99.2 F 71-102 18-20 115-145/65-86 92-97 Exam: Heart Rate-[RRR] Lungs-[CTAB] GI-[+bs soft, NT] Ext-[anasarca UE and LE] Neuro [Motor 5/5], [alert and oriented times 3] psych [depressed mood and affect] General [ no acute distress due to pain] Results - Labs CBC & BMP: 08/19/16 04:37 05/10/17 04:12 Lab Results: I have reviewed the past 24 hour labs Labs: repeat blood cultures pending.
[2016-08-22] MEDS: ALBUMIN 25% 25 GM in PREMIX 1 EACH IV SCH ×3 (00:28→16:14)
[2016-08-22] MEDS: HYDROmorphone 2 MG/1 ML VIAL IV PRN ×4 (00:48→21:08)
[2016-08-22] MEDS: INSULIN LISPRO 100 UNIT/ML SUBCUT SCH ×6 (00:55→20:35)
[2016-08-22] MEDS: DEXT 5% NACL 0.45% KCL 40 MEQ 40 MEQ/1,000 ML BAG IV SCH ×2 (00:56→14:26)
[2016-08-22 06:08] LABS: Basophils % 0.2 % (0.0-0.8); Eosinophils # 0.1 10*3/uL (0.0-0.87); Eosinophils % 1.1 % (0.00-10.9); Hematocrit 33.1 VOL% (42.0-52.0); Hemoglobin 11.1 GM/DL (14.0-18.0); Immature Granulocytes % 0.8 %; Lymphocytes % 8.2 % (21.2-54.2); Mean Corpuscular HGB Conc 33.5 GM/DL (32-36); Mean Corpuscular Hemoglobin 31 PG (27-34); Mean Corpuscular Volume 90.9 FL (87-102); Mean Platelet Volume 10.1 FL (9.6-12.0); Monocytes % 7.8 % (1.7-12.7); Neutrophils # 10.2 10*3/uL (1.4-7.4); Neutrophils % 81.9 % (38.7-73.9); Platelet Count 240 T/CUMM (130-400); Red Blood Count 3.64 MC/CUMM (3.8-5.5); Red Cell Distribution Width 13.3 % (9.3-17.3); White Blood Count 12.5 T/CUMM (4-12)
[2016-08-22 06:48] LABS: Albumin 2.8 G/DL (3.4-5.0); Calcium 7.4 MG/DL (8.5-10.1); Phosphorous 4.3 MG/DL (2.5-4.9); Potassium 4.2 MMOL/L (3.5-5.1)
--- NOTE | 2016-08-22 07:39 | Urology Progress Note ---
Urology - PN: Subj Interval history: The patient has increased output from the nephrostomy post repositioning and replacement of the nephrostomy tube. Creatinine is slightly improved. My plan at this point is to leave the patient with nephrostomy drainage until his renal function has improved as much is going to and then proceed with lithotripsy or ureteroscopy Exam - Constitutional Vitals: Period Temp Pulse Resp BP Sys/Gill Pulse Ox Last 24 Hr 97.9 F-98.5 F 71-102 18-20 115-145/65-86 92-97 Results - Labs CBC & BMP: 08/22/16 05:01 08/22/16 05:02
[2016-08-22] MEDS: INSULIN GLARGINE 100 UNIT/ML SUBCUT SCH (09:16)
[2016-08-22] MEDS: POTASSIUM CITRATE 10 MEQ TABLET PO SCH ×3 (09:17→21:07)
[2016-08-22] MEDS: DESITIN 4OZ/NYSTATIN 15 GRAM MIXTURE PASTE TOP SCH ×2 (09:26→21:07)
--- NOTE | 2016-08-22 09:37 | Nephrology Progress Note ---
Nephrology - PN: Subj Interval history: Pt states he feels better. UOP from right nephrostomy tube finally at level expected. Creatinine 6.1 for eGFR 15cc/min. No uremic symptoms. Urology note reviewed. Exam (PN)-Nephrology - Vital Signs Vital signs: Period Temp Pulse Resp BP Sys/Gill Pulse Ox Last 24 Hr 97.9 F-98.9 F 71-102 18-22 115-145/65-86 92-97 - General Appearance General appearance: well-developed, chronically ill EENT: ATNC, PERRL, mucous membranes moist, hearing intact, vision intact Neck: no JVD, no thyromegaly Respiratory: no kyphosis, clear Cardiology: no murmurs, no rub, no edema Gastrointestinal: normoactive bowel sounds, no tenderness Integumentary: no rash, warm and dry Neurologic: no focal deficit, no asterixis, alert and oriented x3 Musculoskeletal: no deformities, no erythema Psychiatric: mood/affect appropriate, cooperative - Lab 08/22/16 05:01 08/22/16 05:02 Most recent lab results Calcium 7.4 MG/DL (8.5-10.1) L 08/22/16 05:02 Phosphorus 4.3 MG/DL (2.5-4.9) 08/22/16 05:02 Magnesium 2.3 MG/DL (1.8-2.4) 08/16/16 04:16 Assessment and Plan (1) GM (acute kidney injury) Problem details: no acute indication for renal replacement therapy at this time. Status: Acute Assessment and plan: Requires obstructive stone removal. Followed by Urology. MAG3 scan ordered yesterday, not done. Consider transfer to higher level of care for stone removal. Pt agrees with plan. Current Visit: Yes (2) Septic shock Status: Resolved Current Visit: Yes
--- NOTE | 2016-08-22 13:42 | Hospitalist Progress Note ---
Assessment and Plan (1) Right ureteral calculus Status: Acute Assessment and plan: repeat right nephrostomy tube successfully draining well. Dr. Griffin will attempt to place a stent when inflammation improves Current Visit: Yes (2) GM (acute kidney injury) Problem details: no acute indication for renal replacement therapy at this time. Status: Acute Assessment and plan: Urine output good, nephrostomy draining well. Current Visit: Yes (3) Hypokalemia Status: Acute Assessment and plan: cont supplementation Current Visit: Yes (4) Severe sepsis Status: Acute Assessment and plan: resolved, cont Levaquin IV, repeat blood cx negative no growth Current Visit: Yes (5) Pyonephrosis Status: Acute Assessment and plan: resolving Current Visit: Yes Hospitalist: Subjective Interval history: Discussed with patient's parents. Nephrostomy drainage much improved. Dr. Griffin we will plan on doing ureteral stent when the inflammation improves. If unable to stent, will attempt to transfer him to B again. [facility] refused yesterday Exam - Constitutional Vitals: Period Temp Pulse Resp BP Sys/Gill Pulse Ox Last 24 Hr 97.3 F-98.9 F 75-84 18-22 127-141/68-77 95-97 Exam: Heart Rate-[RRR] Lungs-[CTAB] GI-[+bs soft, NT] Ext-[anasarca UE and LE] Neuro [Motor 5/5], [alert and oriented times 3] psych [depressed mood and affect] General [ no acute distress due to pain] Results - Labs CBC & BMP: 08/22/16 05:01 08/22/16 05:02 Lab Results: I have reviewed the past 24 hour labs Labs: Repeat blood cultures negative no growth
[2016-08-22] MEDS: LEVOFLOXACIN INJ 500 MG in PREMIX 1 EACH IV SCH (16:15)
[2016-08-23] MEDS: INSULIN LISPRO 100 UNIT/ML SUBCUT SCH ×4 (00:38→12:06)
[2016-08-23] MEDS: ALBUMIN 25% 25 GM in PREMIX 1 EACH IV SCH ×2 (01:41→08:47)
[2016-08-23] MEDS: HYDROmorphone 2 MG/1 ML VIAL IV PRN ×2 (01:58→08:46)
[2016-08-23] MEDS: ONDANSETRON 4 MG/2 ML VIAL IV PRN (01:58)
[2016-08-23] MEDS: DEXT 5% NACL 0.45% KCL 40 MEQ 40 MEQ/1,000 ML BAG IV SCH (04:14)
[2016-08-23 05:57] LABS: Basophils % 0.2 % (0.0-0.8); Eosinophils # 0.1 10*3/uL (0.0-0.87); Eosinophils % 0.8 % (0.00-10.9); Hematocrit 33.2 VOL% (42.0-52.0); Hemoglobin 10.8 GM/DL (14.0-18.0); Immature Granulocytes % 0.9 %; Lymphocytes # 1.1 10*3/uL (1.4-4.0); Lymphocytes % 10.5 % (21.2-54.2); Mean Corpuscular HGB Conc 32.5 GM/DL (32-36); Mean Corpuscular Hemoglobin 30 PG (27-34); Mean Corpuscular Volume 91.7 FL (87-102); Mean Platelet Volume 9.8 FL (9.6-12.0); Monocytes # 1.2 10*3/uL (0.11-0.8); Monocytes % 10.7 % (1.7-12.7); Neutrophils # 8.3 10*3/uL (1.4-7.4); Neutrophils % 76.9 % (38.7-73.9); Platelet Count 231 T/CUMM (130-400); Red Blood Count 3.62 MC/CUMM (3.8-5.5); Red Cell Distribution Width 13.2 % (9.3-17.3); White Blood Count 10.8 T/CUMM (4-12)
[2016-08-23 06:20] LABS: Albumin 2.9 G/DL (3.4-5.0); Calcium 7.1 MG/DL (8.5-10.1); Osmolality,Calculated 278.4 MOS/KG (273-304); Phosphorous 3.9 MG/DL (2.5-4.9); Potassium 4.8 MMOL/L (3.5-5.1)
--- NOTE | 2016-08-23 07:44 | Urology Progress Note ---
Urology - PN: Subj Interval history: The patient's output from his right kidney has improved and his creatinine is down. We will continue nephrostomy tube drainage until he gets maximum improvement in renal function Exam - Constitutional Vitals: Period Temp Pulse Resp BP Sys/Gill Pulse Ox Last 24 Hr 96.1 F-98.9 F 79-93 18-22 123-161/68-85 95-97 Results - Labs CBC & BMP: 08/23/16 03:37 08/23/16 03:37
[2016-08-23] MEDS: INSULIN GLARGINE 100 UNIT/ML SUBCUT SCH (08:47)
[2016-08-23] MEDS: POTASSIUM CITRATE 10 MEQ TABLET PO SCH (08:48)
[2016-08-23] MEDS: DESITIN 4OZ/NYSTATIN 15 GRAM MIXTURE PASTE TOP SCH (08:49)
--- NOTE | 2016-08-23 10:31 | Nephrology Progress Note ---
Nephrology - PN: Subj Interval history: Pt states he feels the same. Post obstructive diuresis ensuing from right kidney. Creatinine down to 5.4, eGFR 17cc/min. Urology continues to follow obstructive/infected stones. Exam (PN)-Nephrology - Vital Signs Vital signs: Period Temp Pulse Resp BP Sys/Gill Pulse Ox Last 24 Hr 96.1 F-99.5 F 79-93 18-20 123-161/73-85 92-97 - General Appearance General appearance: well-developed, chronically ill EENT: ATNC, PERRL Neck: no JVD, no carotid bruit Respiratory: no kyphosis, clear Cardiology: no murmurs, no rub Gastrointestinal: normoactive bowel sounds, no tenderness Integumentary: no rash, warm and dry Neurologic: no focal deficit, no asterixis, alert and oriented x3 Musculoskeletal: no deformities, no erythema Psychiatric: mood/affect appropriate, cooperative - Lab 08/23/16 03:37 08/23/16 03:37 Most recent lab results Calcium 7.1 MG/DL (8.5-10.1) L 08/23/16 03:37 Phosphorus 3.9 MG/DL (2.5-4.9) 08/23/16 03:37 Magnesium 2.3 MG/DL (1.8-2.4) 08/16/16 04:16 Assessment and Plan (1) GM (acute kidney injury) Problem details: no acute indication for renal replacement therapy at this time. Post obstructive diuresis ensuing. Status: Acute Assessment and plan: Requires obstructive stone removal. Followed by Urology. Consider transfer to higher level of care for stone removal. Pt agrees with plan. Replace electrolytes prn as post obstructive diuresis continues. Current Visit: Yes (2) Septic shock Status: Resolved Current Visit: Yes
--- NOTE | 2016-08-23 11:12 | Discharge Summary ---
Hospital Course - Hospital Course Hospital Course: Mr. Silav is a 50 year old male presenting to the ED with c/o right flank tenderness, nausea, vomiting, weakness for two days ago. He has a PMHX of kidney stones and diabetes. Patient was admitted to the ICU with severe sepsis. CT of his abdomen showed a 9 mm and a 4 mm right ureteral stone. Interventional radiology was consulted and a nephrostomy was placed. He was initially started on Zosyn. Both urology and nephrology were consulted. His BUN and creatinine on admission was 36 and 5.5 respectively. His initial white count was 20. Blood cultures 2 were positive for E. coli pansensitive and urine culture was also positive for E. coli pansensitive. Patient's antibiotics were changed over to Levaquin IV. Repeat blood cultures on 08/20/16 were negative no growth. His potassium requires supplementation continuously through hospitalization. Dr. Carr did not want to place a stent in his right ureter until the renal function improved. Nephrostomy was accidentally pulled out and replaced by Dr. Griffin 08/21/16. Urine output is been much better. His creatinine is now improving. His creatinine started at 5.5 on admission cj to a high of 7 on August 18, 2016 and is now down to 5.4. Patient will be discharged home today with his nephrostomy tube. Dr. Griffin we will try to place a right ureteral stent next week when the swelling improves. We discussed this case with Urology at [facility] who feels a stent should be placed. Dr. Dill performed a renal nuclear scan which showed right kidney at 42% and left kidney at 58%. Patients sepsis has resolved and will require levaquin every other day for 5 more doses. - Time spent with patient Time with patient DS: Greater than 30 minutes (60 min) Diagnosis - Discharge Diagnosis (1) Right ureteral calculus Status: Acute (2) GM (acute kidney injury) Status: Acute (3) Hypokalemia Status: Acute (4) Severe sepsis Status: Acute (5) Pyonephrosis Status: Acute Specialty Discharge - Follow Up or Referrals Discharge Plan - Discharge Data Disposition: Home Health Service Condition at Discharge: Stable Discharge Diet: heart healthy, low salt diet, other (low protein ) Activity: resume usual activities as tolerated Hygiene: no restrictions Weight Bearing at Discharge: full weight bearing Contact your physician if you experience:: fever over 101 - Discharge Medications New Insulin NPH/Regular 70/30 [HumuLIN 70/30] 10 unit SUBCUT BID #100 ml Levofloxacin Tab [Levaquin Tab] 500 mg PO Q48H #5 tablet Hydrocodone/Acetaminophen [[place] 10-325 Tablet] 1 each PO Q6H PRN #60 tablet PRN Reason: Pain Mild (1-3) Carvedilol [Coreg] 3.125 mg PO BID #60 tablet Discontinued metFORMIN [Glucophage] 1,000 mg PO BID W/MEALS Pantoprazole Tab [Protonix Tab] 40 mg PO DAILY Metoprolol Tartrate 50 mg PO BID - Follow Up or Referral Follow Up: Lincoln Griffin MD [Physician] - 08/27/16 (stent to right ureter ) Iraj Carr MD [Physician] - 2 Weeks [facility] [Provider Group] - 2 Weeks Edd Dill MD [Physician] - 2 Weeks - Forms/Instructions Instructions: Kidney Stones (DC), Nephrostomy Tube Insertion (DC) Exam - Constitutional Vitals: Period Temp Pulse Resp BP Sys/Gill Pulse Ox Last 24 Hr 96.1 F-99.5 F 79-93 18-20 123-161/73-85 92-97 General appearance: normal weight, no acute distress - Respiratory Respiratory exam: Present: clear to auscultation bilaterally. Absent: rhonchi, wheezes - Cardiovascular Cardiovascular exam: Present: regular rate and rhythm. Absent: systolic murmur - GI/Abdominal GI/Abdominal exam: Present: normal bowel sounds, soft. Absent: tenderness - Neurological Exam Neurological exam: Present: alert, oriented X3 - Psychiatric Psychiatric exam: Present: normal affect, normal mood Discharge Results Procedures and tests throughout hospitalization: Pending Orders 08/20/16 IR cath exchang nephrostomy RT Routine 08/20/16 16:34 Blood Culture Stat 08/23/16 10:45 stool [C. Diff Toxins A & B] Stat 08/24/16 04:00 Comp Blood Count Auto Diff IN AM Renal Function Panel IN AM Labs on day of discharge: Labs from last 24 hours 08/23/16 08/23/16 08/23/16 07:59 03:37 03:37 WBC 10.8 RBC 3.62 L Hgb 10.8 L Hct 33.2 L MCV 91.7 MCH 30 MCHC 32.5 RDW 13.2 Plt Count 231 MPV 9.8 Neut % (Auto) 76.9 H Lymph % (Auto) 10.5 L [place] % (Auto) 10.7 Eos % (Auto) 0.8 Baso % (Auto) 0.2 Neut # (Auto) 8.3 H Lymph # (Auto) 1.1 L [place] # (Auto) 1.2 H Eos # (Auto) 0.1 Baso # (Auto) 0.0 Immature Gran % 0.9 Nucleated RBC % 0.0 Immature Gran # 0.10 Nucleated RBCs # 0.00 Sodium 133 L Potassium 4.8 Chloride 100 Carbon Dioxide 27 Anion Gap 10.8 BUN 39 H D Creatinine 5.40 H GFR Calculation 17 BUN/Creatinine Ratio 7.00 Glucose 174 H POC Glucose 173 H Calculated Osmolality 278.4 Calcium 7.1 L Phosphorus 3.9 Albumin 2.9 L 08/22/16 08/22/16 08/22/16 19:31 15:54 11:42 WBC RBC Hgb Hct MCV MCH MCHC RDW Plt Count MPV Neut % (Auto) Lymph % (Auto) [place] % (Auto) Eos % (Auto) Baso % (Auto) Neut # (Auto) Lymph # (Auto) [place] # (Auto) Eos # (Auto) Baso # (Auto) Immature Gran % Nucleated RBC % Immature Gran # Nucleated RBCs # Sodium Potassium Chloride Carbon Dioxide Anion Gap BUN Creatinine GFR Calculation BUN/Creatinine Ratio Glucose POC Glucose 148 H 219 H 112 H Calculated Osmolality Calcium Phosphorus Albumin Preliminary micro results at discharge 08/20/16 16:34 Blood Culture - Preliminary Blood No growth at 1 day 08/20/16 16:34 Blood Culture - Preliminary Blood No growth at 1 day DS: Provider Date of admission: 08/13/16 21:56 Primary care physician: . No PCP Attending physician on admission: Hemal Cole MD Consults: 08/13/16 22:00 Consult to Physician [CONS] Routine Comment: On-call physician/obstru kidney stone/septic shock Consulting Provider: Iraj Carr Consulting Provider Notified: Yes When should Consulting Provider be notified: Now Consult to Specialist Group: Urology When should Consulting Provider be notified: Now 08/13/16 22:07 Consult to Physician [CONS] Routine Comment: ED physician/Dr. Iraj Claudio for central line Consulting Provider: Consulting Provider Notified: Yes When should Consulting Provider be notified: Now 08/14/16 00:55 Consult to Physician [CONS] Routine Comment: On-call physician/obstr. ureter/UTI/ureteral stone Consulting Provider: Lincoln Grfifin Consult to Specialist Group: Interventional Radiology When should Consulting Provider be notified: Now 08/14/16 07:37 Consult to Anesthesiology [CONS] Routine Consulting Provider: Reason for Anesthesiology: Other Consult Comment: ANESTHESIA FOR EMERGENT PERC NEPH TUBE/IN SP2/RADIOLOGY 08/14/16 15:34 Consult to Pharmacy [CONS] Routine Reason for Pharmacy Consult: Dose/Manage Vancomycin Dose/Manage Gentamicin 08/15/16 05:08 Consult to Physician [CONS] Routine Comment: Consulting Provider: Edd Dill Consulting Provider Notified: Yes Consult to Specialist Group: Nephrology When should Consulting Provider be notified: In am Person Notified: magy Date Notified: 08/15/16 Time Notified: 08:30 08/20/16 15:55 Consult to Anesthesiology [CONS] Routine Consulting Provider: Reason for Anesthesiology: Pre-op Clearance Consult Comment: Dislodged perc neph, replace in AM, pain intollerance Discharging clinician: Yoon Cobian MD
[2016-08-23] MEDS ORDERED: CARVEDILOL 3.125 MG TABLET PO SCH (11:30)
[2016-08-23 12:02] VITALS: BP 143/74
== END 2016-08-23 14:31 | disposition home health service (06) | DRG 871 ==
LOC: EDUNIT# → EDBD → N.ED 18:54 → SUATTDRO 21:56 → N.EDINP 21:56 → N.ICU 08-14 00:37 → N.TELEN 08-15 15:06
PROVIDERS: ADMIT Internal Medicine Infectious Disease; ATTEND Internal Medicine